=== PATIENT | female | born 1975 | race Caucasian/White ===

== ENCOUNTER 2018-07-13 15:12 | Emergency (ER) | payer BC, OTHER ==
[~2018-07-13] VITALS: Ht 167.6 cm; Wt 104.8 kg
--- OUTSIDE RECORDS SUMMARY | 2018-07-13 15:15 | XMS REPORT | Summary of Care ---
Author Author MANUELA HERRING N.P. Organization Unknown Address Unknown Phone Unavailable Care Team Providers Care Energy Crop Farmer Name Role Phone MANUELA HERRING N.P. Unavailable Unavailable Unavailable Unavailable Functional Status Name Dates Details Functional status health issues are not documented Status: Name Dates Details Cognitive status health issues are not documented Status: Problems Name Dates Details Lumbar disc disease (722.93, M51.9) Status: Active Lumbar stenosis (724.02, M48.061) Status: Active Polyarthralgia (719.49, M25.50) Status: Active Low back pain (724.2, M54.5) Status: Active Allergic rhinitis, seasonal (477.9, J30.2) Status: Active Dysthymia (300.4, F34.1) Status: Active Chronic bilateral low back pain without sciatica (724.2, M54.5) Status: Active Mixed hyperlipidemia (272.2, E78.2) Status: Active Medications Name Dates Details Atorvastatin Calcium 10 MG Oral Tablet TAKE 1 TABLET DAILY Quantity: 30 HERRING N.P., MANUELA Active Etodolac 400 MG Oral Tablet TAKE 1 TABLET TWICE DAILY. * Refills: 0 Active TiZANidine HCl - 4 MG Oral Capsule TAKE CAPSULE PRN * Refills: 0 Active Gabapentin 300 MG Oral Capsule TAKE 2 CAPSULES BY MOUTH THREE TIMES DAILY * Quantity: 540 Refills: 1 * Start : 21-Apr-2017 Active DULoxetine HCl - 20 MG Oral Capsule Delayed Release Particles TAKE 1 CAPSULE TWICE DAILY. * Quantity: 60 Refills: 5 HERRING N.P., MANUELA * Start : 12-Oct-2017 Active Allergies and Adverse Reactions Name Dates Details No Known Allergies (Allergy) Status: Active Past Medical History Name Dates Details History of High cholesterol (272.0, E78.00) Status: Resolved Procedures Procedure Dates Details History of Cholecystotomy Completed History of Section Completed Immunization Name Dates Details Immunizations not documented Family History Name Dates Details Family history of Hodgkin lymphoma of lymph nodes of neck (201.91, C81.91) Status: Active Name Dates Details Family history of pancreatic cancer (V16.0, Z80.0) Status: Active Name Dates Details Family history of Ovarian cancer (183.0, C56.9) Status: Active Name Dates Details Family history of malignant neoplasm of cervix (V16.49, Z80.49) Status: Active Social History Name Dates Details - Status: Name Dates Details Former smoker Vital Signs Date Test Result Details [id number] Physical Findings 11 Status: Comments: PHQ-9 Adult Depression Screening [id number] BP Systolic 132 mm[Hg] Status: Comments: Location: LUE; Position: Sitting BP Diastolic 83 mm[Hg] Status: Comments: Location: LUE; Position: Sitting Height 65 in Status: Weight 228.0625 lb Status: Body Mass Index Calculated 37.95 kg/m2 Status: Body Surface Area Calculated 2.09 m2 Status: Temperature 97.9 f Status: Comments: Method: Temporal Heart Rate 76 /min Status: Comments: Location: L Brachial Artery; Respiration Rate 16 /min Status: Comments: Quality: Normal Results Date Description Value Details Results not documented Plan of Care Name Dates Details Planned Observations Planned Goals not documented Interventions Provided Medication Changes* Atorvastatin Calcium 10 MG Oral Tablet - Renew * DULoxetine HCl - 20 MG Oral Capsule Delayed Release Particles - Renew Instructions* Patient Specific Education Given; Done: 14 Feb 2018 Plan* PHQ-9 score 11. * Patient would like to continue duloxetine at 40 mg. * Meds refilled. * Follow up in 6 months or sooner if needed. Instructions Name Dates Details Instructions not documented Encounters Appointment; ELIGIO MANZO P.A. Encounter Diagnosis: Problem not documented On: 31-Oct-2016 9:00 Appointment; KOLBY KUMAR M.D. Encounter Diagnosis: Problem not documented On: 21-Apr-2017 8:00 Appointment; MANUELA HERRING NP Encounter Diagnosis: Problem not documented On: 10-Jun-2017 17:45 Appointment; ROYAL LAWSON NP Encounter Diagnosis: Problem not documented On: 12-Oct-2017 8:30 Appointment; MANUELA HERRING NP Encounter Diagnosis: Problem not documented On: 16-Nov-2017 11:30 Appointment; MANUELA HERRING NP Encounter Diagnosis: Problem not documented On: 09-Feb-2018 13:00
--- OUTSIDE RECORDS SUMMARY | 2018-07-13 15:15 | XMS REPORT ---
Author Author Admin, [place] Organization [employer] Address Unknown Phone Unavailable Allergies, Adverse Reactions, Alerts Allergy Name Reaction Description Start Date Severity Status Provider No Known Allergies Anita Neville MA Conditions or Problems Problem Name Problem Code Onset Date Status Entry Date Provider Comment Standard Description Annotate Cervix, screening for malignant neoplasm V76.2 Active Nathen Neff MD Screening for malignant neoplasms of the cervix Car Manager annual exam V72.3 Active Nathen Neff MD Special investigations and examinations - Gynecological examination Hot flashes 627.2 Active Nathen Neff MD Symptomatic menopausal or female climacteric states Mammogram not high risk screening V76.12 Active Nathen Neff MD Other screening mammogram Medication List Medication Instructions Start Date Stop Date Generic Name NDC Status Provider Patient Instruction No Drug Therapy Prescribed - none known did ask Anita Neville MA Vital Signs Date Name Value Unit Range Description blood pressure, diastolic 85 mm[Hg] BP herbert blood pressure, systolic 122 mm[Hg] BP sys height E&M 5 [in_us] Bdy height pulse rate E&M 68 /min Heart rate respiratory rate E&M 17 /min Resp rate temperature E&M 98.3 [degF] Body temperature weight E&M 222.50 [lb_av] Weight Measured Diagnostic Results Date Name Value Unit Range Description Lab Report: FSH, Serum, TSH Rfx on Abnormal to Free T4 - Chemistry thyroid stimulating hormone, serum 1.680 u[iU]/mL 0.450-4.500 follicle stimulating hormone, serum 7.9 m[iU]/mL Procedures Code Procedure Name Date Entry Date Standard Description CPT-23005 New Patient Well Exam (40 - 64 Yrs) - 74751 16:12:43 CDT
[2018-07-13] MEDS ORDERED: ASPIRIN 81 MG CHEW TAB PO ONE (15:30)
[2018-07-13 16:08] LABS: BILIRUBIN,URINE 1+ (NEGATIVE); CLARITY,URINE CLEAR (CLEAR); COLOR,URINE YELLOW (YELLOW); KETONES,URINE NEGATIVE (NEGATIVE); LEUKOCYTE ESTERASE ,URINE TRACE (NEGATIVE); NITRITE,URINE NEGATIVE (NEGATIVE); PROTEIN,URINE DIPSTICK NEGATIVE (NEGATIVE); URINE UROBILINOGEN 0.2 mg/dL (0.2 - 1)
[2018-07-13 16:09] LABS: PREGNANCY TEST, URINE NEGATIVE (NEGATIVE)
[2018-07-13 16:19] LABS: EPITHELIAL CELLS,URINE FEW /LPF; WBC,URINE (MAN) 0-5 /HPF (0-5)
[2018-07-13 16:31] LABS: BASOPHILS % 0.3 % (0.0-1.0); EOSINOPHILS # (AUTO) 0.1 (0.0-0.4); EOSINOPHILS % 1.8 % (0.0-6.0); HEMATOCRIT 40.4 % (34.2-44.1); LYMPHOCYTES # (AUTO) 1.8 (1.0-3.2); LYMPHOCYTES % 26.3 % (18.0-39.1); MEAN CORPUSCULAR HEMOGLOBIN 29.5 pg (28-32); MEAN CORPUSCULAR HGB CONC 32.2 g/dL (31-35); MEAN CORPUSCULAR VOLUME 91.6 fL (81-99); MONOCYTES # (AUTO) 0.4 (0.2-0.8); MONOCYTES % 6.4 % (4.4-11.3); NEUTROPHILS # (AUTO) 4.5 (2.1-6.9); NEUTROPHILS % 65.1 % (38.7-80.0); PLATELET COUNT 442 x10e3/uL (140-360); RED BLOOD COUNT 4.41 x10e6/uL (3.6-5.1); RED CELL DISTRIBUTION WIDTH 12.6 % (11.7-14.4)
[2018-07-13 16:37] LABS: INR 0.91; PROTHROMBIN TIME 13.1 seconds (11.9-14.5)
[2018-07-13 16:38] LABS: PARTIAL THROMBOPLASTIN TIME 27.1 seconds (23.8-35.5)
[2018-07-13 16:45] LABS: ALANINE AMINOTRANSFERASE 16 IU/L (0-55); ALBUMIN 3.7 g/dL (3.5-5.0); ALBUMIN/GLOBULIN RATIO 0.8 (0.8-2.0); ALKALINE PHOSPHATASE 108 IU/L (40-150); ANION GAP 15.7 mmol/L (8-16); BLOOD UREA NITROGEN 9 mg/dL (7-26); BUN/CREATININE RATIO 10 (6-25); CALCIUM 9.7 mg/dL (8.4-10.2); CARBON DIOXIDE 24 mmol/L (22-29); CHLORIDE 107 mmol/L (98-107); CREATINE KINASE 129 IU/L (29-168); CREATININE, SERUM 0.94 mg/dL (0.57-1.11); EST GLOMERULAR FILTRATION RATE > 60 ML/MIN (60-); GLUCOSE 83 mg/dL (74-118); LIPASE 13 U/L (8-78); MAGNESIUM 2.1 MG/DL (1.3-2.1); POTASSIUM 3.7 mmol/L (3.5-5.1); SODIUM 143 mmol/L (136-145)
--- NOTE | 2018-07-13 17:04 | Diagnostic Imaging Report ---
Examination: Single AP view of the chest. COMPARISON: None. INDICATION: Dizziness, nausea, IMPRESSION: 1. Lines and Tubes: None 2. Lungs are grossly clear. No consolidation or effusion. 3. Cardiomediastinal silhouette is normal. Pulmonary vasculature is normal. 4. No acute bony abnormalities. Signed by: Dr. Yair Aragon M.D. on 07/13/2018 5:00 PM
[2018-07-13 17:05] LABS: THYROID STIMULATING HORMONE 2.185 uIU/mL (0.350-4.940)
--- NOTE | 2018-07-13 17:44 | Diagnostic Imaging Report ---
History: Dizziness Comparison studies: MRI brain 07/23/2010 Technique: Axial images were obtained from the skull base to the vertex. Coronal and sagittal reconstructions obtained from the axial data. Dose modulation, iterative reconstruction, and/or weight based adjustment of the mA/kV was utilized to reduce the radiation dose to as low as reasonably achievable. Findings: Scalp/skull: No abnormalities. No fractures, blastic or lytic lesions. Extra-axial spaces: No masses. No fluid collections. Brain sulci: Appropriate for age. Ventricles: Normal in size and configuration. No hydrocephalus. Parenchyma: No abnormal densities. No masses, hemorrhage, acute or chronic cortical vascular insults. Sellar/suprasellar region: No abnormalities Craniocervical junction: Patent foramen magnum. No Chiari one malformation. IMPRESSION: No abnormalities . Signed by: DR Jose L Gambino M.D. on 07/13/2018 5:40 PM
== END 2018-07-13 18:06 | disposition home or self-care (01) ==
LOC: ER 15:12
DX: R42 Dizziness and giddiness (principal); R11.0 Nausea; G89.29 Other chronic pain
CPT/HCPCS: 36415; 70450; 71045; 80053; 81001; 81025; 82550; 82553; 83690; 83735; 83880; 84443; 84484; 85025; 85610; 85730; 87086; 93005; 99284

== ENCOUNTER → 2019-12-30 | Day surgery (SDC) | payer BC ==
[~2019-12-30] MED LIST: ATORVASTATIN CA10 MG PO; B&O 60MG R/S 60 MG SUPP PR ONE; CEFTRIAXONE SOD 1 GM/NS 50 ML 50 ML IV ONE; CYMBALTA30 MG PO; DESFLURANE 240 ML BTL INH ONE; DEXAMETHASONE SOD PHOS INJ 4 MG/ML VIAL ONE; ETODOLAC400 M1 PO; GABAPENTIN300 MG PO; GENTAMICIN 80MG/NS 100 ML 200 ML IV ONE; IOPAMIDOL 300MG/ML 50ML INFUS..BTL IV ONE; LIDOCAINE HCL 2% LOCAL INJ 5 ML SDV VIAL INJ ONE; MEPERIDINE HCL INJ 25 MG/ML VIAL ONE; METOCLOPRAMIDE HCL 10 MG/2ML VIAL ONE; OLMESARTAN MEDOX5 MG PO; ONDANSETRON HCL INJ 2MG/ML 2ML 2 MG/ML VIAL ONE; PROPOFOL IV EMULSION 10 MG/ML 20 ML VIAL ONE; TIZANIDINE HCL4 MG PO; ULTRAM 50MG50 MG PO; VALIUM5 MG PO
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
--- OUTSIDE RECORDS SUMMARY | 2019-12-30 06:42 | XMS REPORT | Summary of Care ---
Author Author ELIGIO ROBLES Organization Unknown Address Unknown Phone Unavailable Care Team Providers Care Etl Lead Name Role Phone ELIGIO ROBLES Unavailable Unavailable LEDY P.A., YAMILE Unavailable Unavailable LEDY PA ND, YAMILE MCNEILL Unavailable Unavailable SEPIDEH PARKER ND, JOLENE Gomez Unavailable Unavailable BERNARD PARKER ND, DEE DEE CALDERON Unavailable Unavailable FERNANDA PARKER, GUIDO Ross Unavailable Unavailable Unavailable Unavailable Functional Status Name Dates Details Functional status health issues are not documented Status: Name Dates Details Cognitive status health issues are not documented Status: Problems Name Dates Details Lumbar disc disease (722.93, M51.9) Status: Active Lumbar stenosis (724.02, M48.061) Status: Active Polyarthralgia (719.49, M25.50) Status: Active Allergic rhinitis, seasonal (477.9, J30.2) Status: Active Chronic bilateral low back pain without sciatica (724.2, M54.5) Status: Active Vision disturbance (368.9, H53.9) Status: Active Dysthymia (300.4, F34.1) Status: Active Other form of dyspnea (786.09, R06.09) Status: Active Bilateral leg edema (782.3, R60.0) Status: Active Morbid obesity (278.01, E66.01) Status: Active Influenza vaccination declined (V64.06, Z28.21) Status: Active Benign essential hypertension (401.1, I10) Status: Active Mixed hyperlipidemia (272.2, E78.2) Status: Active BMI 40.0-44.9, adult (V85.41, Z68.41) Status: Active Anxiety (300.00, F41.9) Status: Active Dysuria (788.1, R30.0) Status: Active Migraine (346.90, G43.909) Status: Active Hematuria (599.70, R31.9) Status: Active Medications Name Dates Details Atorvastatin Calcium 10 MG Oral Tablet TAKE 1 TABLET BY MOUTH ONCE DAILY Quantity: 90 ANAIS Yoshi.[place]ALLAS MartinELIGIO * Start : 01-Sep-2018 Active Etodolac 400 MG Oral Tablet TAKE 1 TABLET TWICE DAILY. * Refills: 0 Active tiZANidine HCl - 4 MG Oral Capsule TAKE CAPSULE PRN * Refills: 0 Active DULoxetine HCl - 30 MG Oral Capsule Delayed Release Particles TAKE ONE CAPSULE BY MOUTH TWICE A DAY * Quantity: 180 Refills: 1 ANAIS Belle.ADALLAS MartinELIGIO * Start : 12-Oct-2017 Active Gabapentin 300 MG Oral Capsule TAKE 3 CAPSULE 3 TIMES DAILY * Refills: 0 Active traMADol HCl - 50 MG Oral Tablet PRN * Refills: 0 Active Amitriptyline HCl TABS TAKE 1 TABLET DAILY * Refills: 0 Active Olmesartan Medoxomil 5 MG Oral Tablet TAKE 1 TABLET DAILY * Quantity: 90 Refills: 1 ANAIS Belle.AVeronica ELIGIO * Start : 19-Jan-2019 Active Eletriptan Hydrobromide 20 MG Oral Tablet TAKE 1 TABLET AT ONSET OF MIGRAINE. MAY REPEAT ONCE AFTER 2 HOURS. MAX 2 DOSES/2 4 HOURS. * Quantity: 30 Refills: 1 YAMILE VELAZQUEZ * Start : 19-Jan-2019 Active diazePAM 5 MG Oral Tablet TAKE 1 TABLET TWICE DAILY. * Quantity: 60 Refills: 1 ELIGIO ROBLES * Start : 19-Dec-2019 Active Allergies and Adverse Reactions Name Dates Details No Known Allergies (Allergy) Status: Active Past Medical History Name Dates Details History of High cholesterol (272.0, E78.00) Status: Resolved Procedures Procedure Dates Details [[facility]] CULTURE, URINE, ROUTINE Date: 19-Dec-2019 Bladder 26162 Date: 19-Dec-2019 Renal 26194 Date: 19-Dec-2019 History of Cholecystotomy Completed History of Section [...] Dates Details - Status: Name Dates Details Ex-smoker (finding) Vital Signs Date Test Result Details :20 Physical Findings 21 Status: Comments: PHQ-9 Adult Depression Screening :38 Systolic blood pressure 135 mm[Hg] Status: Comments: Location: E; Position: Sitting Diastolic blood pressure 85 mm[Hg] Status: Comments: Location: LUE; Position: Sitting Body height 65 in Status: Weight 261.5625 lb Status: Body mass index (BMI) [Ratio] 43.53 kg/m2 Status: Body surface area Derived from formula 2.22 m2 Status: Body temperature 96.5 f Status: Comments: Method: Temporal Heart Rate 116 /min Status: Respiratory rate 16 /min Status: :37 Physical Findings 0 Status: Comments: Alcohol Screen - How many times in the past yr have you had 5 (for M) or 4 (for F) or 4 (for all > 65yrs) or more drinks in a day? Results Date Description Value Details :47 [O] Urine Dipstick (In Office) Glucose normal (Normal) LEUKOCYTES ++ NITRITE + UROBILINOGEN neg (Normal) PROTEIN trace pH 5 URINE BLOOD about 250 SPECIFIC GRAVITY 1.010 KETONES neg (Normal) BILIRUBIN neg (Normal) COLOR URINE yellow (Normal) APPEARANCE clear (Normal) Plan of Care Name Dates Details Planned Observations Planned Goals not documented Interventions Provided Medication Changes* Atorvastatin Calcium 10 MG Oral Tablet - Renew * diazePAM 5 MG Oral Tablet - Start * DULoxetine HCl - 30 MG Oral Capsule Delayed Release Particles - Renew * Olmesartan Medoxomil 5 MG Oral Tablet - Renew Labs/Procedures/Imaging* [[facility]] CULTURE, URINE, ROUTINE; To Be Done: 19 Dec 2019 * US Bladder 24345; To Be Done: 19 Dec 2019 * [place] Renal 72956; To Be Done: 19 Dec 2019 * [O] Urine Dipstick (In Office); Done: 19 Dec 2019 * Tobacco Use Screening; Done: 19 Dec 2019 * Tobacco Use Screening; Done: 19 Dec 2019 Plan* trial valium 5 mg po bid x 2 weeks, then prn thereafter. f/u in 2 months if no improvement. * Denies any SI/ HI. * Phq9: 21 restart duloxetone. trial of valium * Await urine culture. Instructions Name Dates Details Instructions not documented Encounters Appointment; HERRING, MANUELA, REQUIREMENTS ANALYST Encounter Diagnosis: Problem not documented On: 09-Feb-2018 13:00 Appointment; YAMILE VILLAFANA P.A. Encounter Diagnosis: Problem not documented On: 13-Jul-2018 14:00 Appointment; YAMILE VILLAFANA P.A. Encounter Diagnosis: Problem not documented On: 06-Sep-2018 14:00 Appointment; JOLENE BUNN M.D. Encounter Diagnosis: Problem not documented On: 24-Sep-2018 14:15 Appointment; MANUELA HERRING APRN Encounter Diagnosis: Problem not documented On: 19-Jan-2019 13:00 Appointment; YAMILE VILLAFANA P.A. Encounter Diagnosis: Problem not documented On: 02-Mar-2019 7:30 Appointment; YAMILE VILLAFANA P.A. Encounter Diagnosis: Problem not documented On: 09-Mar-2019 7:30 Appointment; YAMILE VILLAFANA P.A. Encounter Diagnosis: Problem not documented On: 10-Aug-2019 7:30 Appointment; YAMILE VILLAFANA P.A. Encounter Diagnosis: Problem not documented On: 05-Oct-2019 8:00 Appointment; ELIGIO MANZO P.A. Encounter Diagnosis: Problem not documented On: 19-Dec-2019 10:45
--- OUTSIDE RECORDS SUMMARY | 2019-12-30 06:42 | XMS REPORT | Summary of Care ---
Author Author ELIGIO ROBLES Organization Unknown Address Unknown Phone Unavailable Care Team Providers Care Vascular Nurse Name Role Phone ELIGIO ROBLES Unavailable Unavailable LEDY P.A., YAMILE Unavailable Unavailable LEDY PA ME, YAMILE MCNEILL Unavailable Unavailable SEPIDEH PARKER ME, JOLENE Gomez Unavailable Unavailable BERNARD PARKER ME, DEE DEE CALDERON Unavailable Unavailable FERNANDA PARKER, [...] DAILY * Quantity: 90 Refills: 1 ANAIS Belle.DALL[place] AminICIA * Start : 19-Jan-2019 Active Eletriptan Hydrobromide [...] E78.00) Status: Resolved Procedures Procedure Dates Details Bladder 54216 Date: 19-Dec-2019 [place] Renal 32136 Date: 19-Dec-2019 History of Cholecystotomy Completed History [...] blood pressure 135 mm[Hg] Status: Comments: Location: LUE; Position: Sitting Diastolic blood pressure 85 mm[Hg] [...] a day? Results Date Description Value Details Results not documented Plan of Care Name Dates Details Planned Observations Planned Goals not documented Interventions Provided Medication Changes* Atorvastatin Calcium 10 MG Oral Tablet - Renew * diazePAM 5 MG Oral Tablet - Start * DULoxetine HCl - 30 MG Oral Capsule Delayed Release Particles - Renew * Olmesartan Medoxomil 5 MG Oral Tablet - Renew Labs/Procedures/Imaging* US Bladder 69972; To Be Done: 19 Dec 2019 * US Renal 27824; To Be Done: 19 Dec 2019 * Tobacco Use [...] Dates Details Instructions not documented Encounters Appointment; MANUELA HERRING APRN Encounter Diagnosis: Problem not documented On: 09-Feb-2018 [...]
--- OUTSIDE RECORDS SUMMARY | 2019-12-30 06:42 | XMS REPORT | Summary of Care ---
Author Nicho Ness [facility] Unknown Address Unknown Phone Unavailable Care Team Providers Care Construction Foreman Name Role Phone YAMILE VELAZQUEZ Unavailable Unavailable LEDY ORTIZ [place], YAMILE MCNEILL Unavailable Unavailable SEPIDEH PARKER [place], JOLENE Gomez Unavailable Unavailable BERNARD PARKER [place], DEE DEE CALDERON Unavailable Unavailable FERNANDA PARKER, [...] Active Vision disturbance (368.9, H53.9) Status: Active Benign essential hypertension (401.1, I10) Status: Active Dysthymia (300.4, F34.1) Status: Active Anxiety (300.00, F41.9) Status: Active Other form of dyspnea (786.09, R06.09) Status: Active Migraine (346.90, G43.909) Status: Active Mixed hyperlipidemia (272.2, E78.2) Status: Active Bilateral leg edema (782.3, R60.0) Status: Active Morbid obesity (278.01, E66.01) Status: Active Hematuria (599.70, R31.9) Status: Active Influenza vaccination declined (V64.06, Z28.21) Status: Active Medications Name Dates Details Atorvastatin Calcium 10 MG Oral Tablet TAKE 1 TABLET BY MOUTH ONCE DAILY Quantity: 90 YAMILE VELAZQUEZ * Start : 01-Sep-2018 Active Etodolac 400 MG Oral Tablet TAKE 1 TABLET TWICE DAILY. * Refills: 0 M.A. Active tiZANidine HCl - 4 MG Oral Capsule TAKE CAPSULE PRN * Refills: 0 M.A. Active DULoxetine HCl - 30 MG Oral Capsule Delayed Release Particles TAKE ONE CAPSULE BY MOUTH TWICE A DAY.. needs office visit * Quantity: 60 Refills: 2 YAMILE VELAZQUEZ * Start : 12-Oct-2017 Active Gabapentin 300 MG Oral Capsule TAKE 3 CAPSULE 3 TIMES DAILY * Refills: 0 M.A. Active traMADol HCl - 50 MG Oral Tablet PRN * Refills: 0 M.A. Active Amitriptyline HCl TABS TAKE 1 TABLET DAILY * Refills: 0 M.A. Active Ondansetron HCl - 4 MG Oral Tablet TAKE 1 TABLET EVERY 8 HOURS PRN nausea or vomiting * Quantity: 30 Refills: 0 YAMILE VELAZQUEZ * Start : 19-Jan-2019 Active Olmesartan Medoxomil 5 MG Oral Tablet TAKE 1 TABLET DAILY * Quantity: 90 Refills: 1 YAMILE VELAZQUEZ * Start : 19-Jan-2019 Active Eletriptan Hydrobromide 20 MG Oral Tablet TAKE 1 TABLET AT ONSET OF MIGRAINE. MAY REPEAT ONCE AFTER 2 HOURS. MAX 2 DOSES/2 4 HOURS. * Quantity: 30 Refills: 1 YAMILE VELAZQUEZ * Start : 19-Jan-2019 Active hydrOXYzine HCl - 25 MG Oral Tablet 1-2 PO TID PRN anxiety. May cause drowsiness * Quantity: 60 Refills: 2 YAMILE VELAZQUEZ * Start : 10-Aug-2019 Active Allergies and Adverse Reactions Name Dates Details No Known Allergies (Allergy) Status: Active Past Medical History Name Dates Details History of High cholesterol (272.0, E78.00) Status: Resolved Procedures Procedure Dates Details XRAY Chest 2 views [id number] Date: 10-Aug-2019 History of Cholecystotomy Completed History of Section [...] smoker Vital Signs Date Test Result Details :30 Physical Findings 16 Status: Comments: PHQ-9 Adult Depression Screening Physical Findings 0 Status: Comments: Alcohol Screen - How many times in the past yr have you had 5 (for M) or 4 (for F) or 4 (for all > 65yrs) or more drinks in a day? :45 BP Systolic 138 mm[Hg] Status: Comments: Location: LUE; Position: Sitting BP Diastolic 84 mm[Hg] Status: Comments: Location: LUE; Position: Sitting Height 65 in Status: Weight 259 lb Status: Body Mass Index Calculated 43.1 kg/m2 Status: Body Surface Area Calculated 2.21 m2 Status: Temperature 97.5 f Status: Comments: Method: Temporal Heart Rate 82 /min Status: Respiration Rate 16 /min Status: Results Date Description Value Details :48 [QL] LIPID PANEL CHOLESTEROL, TOTAL 184 mg/dl (Normal) Range: <200 HDL CHOLESTEROL 56 mg/dl (Normal) Range: >50 TRIGLYCERIDES 126 mg/dl (Normal) Range: <150 LDL-CHOLESTEROL 105 {MG/DL__CAL} (Above high threshold) Comments: Reference range: <100 Desirable range <100 mg/dL for primary prevention; <70 mg/dL for patients with CHD or diabetic patients with > or=2 CHD risk factors. LDL-C is now calculated using the Irma calculation, which is a validated novel method providing better accuracy than the Friedewald equation in the estimation of LDL-C. Jamal SS et al. JUSTIN. 2013;310(19): 3278-0527 (http:/ /education.[employer].com/faq/VLZ537) CHOL/HDLC RATIO 3.3 {CALC} (Normal) Range: <5.0 NON HDL CHOLESTEROL 128 {MG/DL__CAL} (Normal) Range: <130 Comments: For patients with diabetes plus 1 major ASCVD risk factor, treating to a non-HDL-C goal of <100 mg/dL (LDL-C of <70 mg/dL) is considered a therapeutic option. :48 [QLH] CMP W/EGFR GLUCOSE 98 mg/dl (Normal) Range: 65-99 Comments: Fasting reference interval UREA NITROGEN (BUN) 12 mg/dl (Normal) Range: 7-25 CREATININE 0.80 mg/dl (Normal) Range: 0.50-1.10 eGFR NON- 91 {ML/MIN/1.7} (Normal) Range: > OR=60 eGFR 105 {ML/MIN/1.7} (Normal) Range: > OR=60 BUN/CREATININE RATIO NOT APPLICABLE {CALC} Range: 6-22 SODIUM 140 mmol/L (Normal) Range: 135-146 POTASSIUM 4.5 mmol/L (Normal) Range: 3.5-5.3 CHLORIDE 105 mmol/L (Normal) Range: 98-110 CARBON DIOXIDE 28 mmol/L (Normal) Range: 20-32 CALCIUM 9.1 mg/dl (Normal) Range: 8.6-10.2 PROTEIN, TOTAL 7.0 g/dl (Normal) Range: 6.1-8.1 ALBUMIN 3.7 g/dl (Normal) Range: 3.6-5.1 GLOBULIN 3.3 {G/DL__CALC} (Normal) Range: 1.9-3.7 ALBUMIN/GLOBULIN RATIO 1.1 {CALC} (Normal) Range: 1.0-2.5 BILIRUBIN, TOTAL 0.9 mg/dl (Normal) Range: 0.2-1.2 ALKALINE PHSPHATASE 92 u/l (Normal) Range: 33-115 AST 11 u/l (Normal) Range: 10-30 ALT 13 u/l (Normal) Range: 6-29 29-Onx-12992:48 [[facility]] URINALYSIS, COMPLETE W/REFLEX TO CULTURE COLOR YELLOW (Normal) Range: YELLOW APPEARANCE CLEAR (Normal) Range: CLEAR SPECIFIC GRAVITY 1.023 (Normal) Range: 1.001-1.035 PH 6.5 (Normal) Range: 5.0-8.0 GLUCOSE NEGATIVE (Normal) Range: NEGATIVE BILIRUBIN NEGATIVE (Normal) Range: NEGATIVE KETONES NEGATIVE (Normal) Range: NEGATIVE OCCULT BLOOD 3+ (Abnormal) Range: NEGATIVE PROTEIN 1+ (Abnormal) Range: NEGATIVE NITRITE NEGATIVE (Normal) Range: NEGATIVE LEUKOCYTE ESTERASE 1+ (Abnormal) Range: NEGATIVE WBC 10-20 {/HPF} (Abnormal) Range: < OR=5 RBC 40-60 {/HPF} (Abnormal) Range: < OR=2 SQUAMOUS EPITHELIAL CELLS 0-5 {/HPF} Range: < OR=5 BACTERIA NONE SEEN {/HPF} (Normal) Range: NONE SEEN HYALINE CAST 0-5 {/LPF} (Abnormal) Range: NONE SEEN :48 [Q] REFLEXIVE URINE CULTURE REFLEXIVE URINE CULTURE CULTURE INDICATED - RESULTS TO FOLLOW :48 [QL] CBC (INCLUDES DIFF/PLT) WHITE BLOOD CELL COUNT 5.7 {Thousand/u} (Normal) Range: 3.8-10.8 RED BLOOD CELL COUNT 3.94 {Million/uL} (Normal) Range: 3.80-5.10 HEMAGLOBIN 11.7 g/dl (Normal) Range: 11.7-15.5 HEMATOCRIT 34.7 % (Below low threshold) Range: 35.0-45.0 MCV 88.1 fL (Normal) Range: 80.0-100.0 MCH 29.7 pg (Normal) Range: 27.0-33.0 MCHC 33.7 g/dl (Normal) Range: 32.0-36.0 RDW 12.5 % (Normal) Range: 11.0-15.0 PLATELET COUNT 391 {Thousand/u} (Normal) Range: 140-400 MPV 9.1 fL (Normal) Range: 7.5-12.5 ABSOLUTE NEUTROPHILS 3283 {cells/uL} (Normal) Range: 7207-2018 ABSOLUTE LYMPHOCYTES 1773 {cells/uL} (Normal) Range: 850-3900 ABSOLUTE MONOCYTES 456 {cells/uL} (Normal) Range: 200-950 ABSOLUTE EOSINOPHILS 148 {cells/uL} (Normal) Range: 15-500 ABSOLUTE BASOPHILS 40 {cells/uL} (Normal) Range: 0-200 NEUTROPHILS 57.6 % (Normal) LYMPHOCYTES 31.1 % (Normal) MONOCYTES 8.0 % (Normal) EOSINOPHILS 2.6 % (Normal) BASOPHILS 0.7 % (Normal) :48 [QL] TSH, 3RD GENERATION W/REFLEX TO FT4 TSH, 3RD GENERATION W/REFLEX TO FT4 2.24 {MIU/L} (Normal) Comments: Reference Range > or=20 Years 0.40-4.50 Ranges First trimester 0.26-2.66 Second trimester 0.55-2.73 Third trimester 0.43-2.91 :48 [QL] CULTURE, URINE, ROUTINE Comments: REPORT COMMENT:FASTING:YES CULTURE Comments: CULTURE, URINE, ROUTINE MICRO NUMBER: [id number] TEST STATUS: FINAL SPECIMEN SOURCE: URINE SPECIMEN QUALITY: ADEQUATE Result: Multiple organisms present, each less than 10,000 CFU/mL. These organisms, commonly found on external and internal genitalia, are considered to be colonizers. No further testing performed. [id number] [[facility]] URINALYSIS, COMPLETE W/REFLEX TO CULTURE COLOR YELLOW (Normal) Range: YELLOW APPEARANCE CLEAR (Normal) Range: CLEAR SPECIFIC GRAVITY 1.013 (Normal) Range: 1.001-1.035 PH 5.5 (Normal) Range: 5.0-8.0 GLUCOSE NEGATIVE (Normal) Range: NEGATIVE BILIRUBIN NEGATIVE (Normal) Range: NEGATIVE KETONES NEGATIVE (Normal) Range: NEGATIVE OCCULT BLOOD NEGATIVE (Normal) Range: NEGATIVE PROTEIN TRACE (Abnormal) Range: NEGATIVE NITRITE NEGATIVE (Normal) Range: NEGATIVE LEUKOCYTE ESTERASE 1+ (Abnormal) Range: NEGATIVE WBC 10-20 {/HPF} (Abnormal) Range: < OR=5 RBC 0-2 {/HPF} (Normal) Range: < OR=2 SQUAMOUS EPITHELIAL CELLS NONE SEEN {/HPF} (Normal) Range: < OR=5 BACTERIA NONE SEEN {/HPF} (Normal) Range: NONE SEEN HYALINE CAST NONE SEEN {/LPF} (Normal) Range: NONE SEEN [id number] [] REFLEXIVE URINE CULTURE REFLEXIVE URINE CULTURE CULTURE INDICATED - RESULTS TO FOLLOW [id number] [[facility]] CULTURE, URINE, ROUTINE Comments: REPORT COMMENT:FASTING:NO CULTURE Comments: CULTURE, URINE, ROUTINE Micro Number: [id number] Test Status: Final Specimen Source: URINE Specimen Quality: Adequate Result: Multiple organisms present, each less than 10,000 CFU/mL. These organisms, commonly found on external and internal genitalia, are considered to be colonizers. No further testing performed. Plan of Care Name Dates Details Planned Observations Planned Goals not documented Planned Encounters Appointment; YAMILE VILLAFANA P.A. On: 05-Oct-2019 8:00 Instructions Name Dates Details Instructions not documented Encounters Appointment; ROYAL LAWSON NP Encounter Diagnosis: Problem [...] documented On: 24-Sep-2018 14:15 Appointment; MANUELA HERRING NP Encounter Diagnosis: Problem not documented On: 19-Jan-2019 13:00 Appointment; YAMILE VILLAFANA P.A. Encounter Diagnosis: Problem not documented On: 02-Mar-2019 7:30 Appointment; YAMILE VILLAFANA P.A. Encounter Diagnosis: Problem not documented On: 09-Mar-2019 7:30 Appointment; YAMILE VILLAFANA P.A. Encounter Diagnosis: Problem not documented On: 10-Aug-2019 7:30
--- OUTSIDE RECORDS SUMMARY | 2019-12-30 06:42 | XMS REPORT ---
Author Author Admin, [place] Organization [facility] Address [address] [address] Phone Allergies, Adverse Reactions, Alerts Allergy Name Reaction Description Start Date Severity Status Provider No Known Allergies Anita Neville MA Conditions or Problems Problem Name Problem Code Onset Date Status Entry Date Provider Comment Standard Description Annotate Cervix, screening for malignant neoplasm V76.2 Active Nathen Neff MD Screening for malignant neoplasms of the cervix Pipe Recovery Specialist annual exam V72.3 Active Nathen Neff MD [...] Procedure Name Date Entry Date Standard Description CPT-98431 New Patient Well Exam (40 - 64 Yrs) - 29636 16:12:43 CDT
--- OUTSIDE RECORDS SUMMARY | 2019-12-30 06:42 | XMS REPORT | Summary of Care ---
Author Author ELIGIO ROBLES Organization Unknown Address Unknown Phone Unavailable Care Team Providers Care Director Of Knowledge Management Name Role Phone ELIGIO ROBLES Unavailable Unavailable LEDY P.A., YAMILE Unavailable Unavailable LEDY PA [place], YAMILE MCNEILL Unavailable Unavailable SEPIDEH PARKER [place], JOLENE Gomez Unavailable Unavailable BERNARD PARKER [place], DEE DEE CALDERON Unavailable Unavailable FERNANDA PARKER, [...] Influenza vaccination declined (V64.06, Z28.21) Status: Active BMI 40.0-44.9, adult (V85.41, Z68.41) Status: Active Anxiety (300.00, F41.9) Status: Active Medications Name Dates Details Atorvastatin Calcium 10 MG Oral Tablet TAKE 1 TABLET BY MOUTH ONCE DAILY Quantity: 90 ANAIS Mora, ELIGIO * Start : 01-Sep-2018 Active Etodolac 400 MG Oral Tablet TAKE 1 TABLET TWICE DAILY. * Refills: 0 Active tiZANidine HCl - 4 MG Oral Capsule TAKE CAPSULE PRN * Refills: 0 Active DULoxetine HCl - 30 MG Oral Capsule Delayed Release Particles TAKE ONE CAPSULE BY MOUTH TWICE A DAY * Quantity: 180 Refills: 1 ELIGIO ROBLES * Start : 12-Oct-2017 Active Gabapentin 300 MG Oral Capsule TAKE 3 CAPSULE 3 TIMES DAILY * Refills: 0 Active traMADol HCl - 50 MG Oral Tablet PRN * Refills: 0 Active Amitriptyline HCl TABS TAKE 1 TABLET DAILY * Refills: 0 Active Olmesartan Medoxomil 5 MG Oral Tablet TAKE 1 TABLET DAILY * Quantity: 90 Refills: 1 ANAIS Belle.ELIGIO Amin * Start : 19-Jan-2019 Active Eletriptan Hydrobromide 20 MG Oral Tablet TAKE 1 TABLET AT ONSET OF MIGRAINE. MAY REPEAT ONCE AFTER 2 HOURS. MAX 2 DOSES/2 4 HOURS. * Quantity: 30 Refills: 1 YAMILE VELAZQUEZ * Start : 19-Jan-2019 Active diazePAM 5 MG Oral Tablet TAKE 1 TABLET TWICE DAILY. * Quantity: 60 Refills: 1 DALLAS ROBLESICIA * Start : 19-Dec-2019 Active Allergies and [...] (finding) Vital Signs Date Test Result Details [id number] Systolic blood pressure 135 mm[Hg] Status: Comments: [...] /min Status: Respiratory rate 16 /min Status: 70-Fbk-[id number]:37 Physical Findings 0 Status: Comments: Alcohol Screen [...] 5 MG Oral Tablet - Renew Labs/Procedures/Imaging* Tobacco Use Screening; Done: 19 Dec 2019 Plan* trial valium * deeniws any Si/hi * phq9: 21 restrat duloxetone * dysuria Instructions Name Dates Details Instructions not documented [...]
--- OUTSIDE RECORDS SUMMARY | 2019-12-30 06:42 | XMS REPORT | Summary of Care ---
Author Author Emilie Hernandez M.A. Organization Unknown Address [facility] Phone Unavailable Care Team Providers Care Sash Installer Name Role Phone ELIGIO ROBLES Unavailable Unavailable Emilie Hernandez M.A. Unavailable Unavailable LEDYYAMILE PHELAN Unavailable Unavailable LEDY ANGEL [place], YAMILE MCNEILL Unavailable Unavailable SEPIDEH PARKER [place], JOLENE Gomez Unavailable Unavailable BERNARD PARKER [place], DEE DEE CALDERON Unavailable Unavailable FERNANDA PARKER, [...] Status: Active Dysuria (788.1, R30.0) Status: Active Medications Name Dates Details Atorvastatin Calcium 10 MG Oral Tablet TAKE 1 TABLET BY MOUTH ONCE DAILY Quantity: 90 ANAIS Belle.DALLAS AminICIA * Start : 01-Sep-2018 Active Etodolac 400 MG Oral Tablet TAKE 1 TABLET TWICE DAILY. * Refills: 0 Active tiZANidine HCl - 4 MG Oral Capsule TAKE CAPSULE PRN * Refills: 0 Active DULoxetine HCl - 30 MG Oral Capsule Delayed Release Particles TAKE ONE CAPSULE BY MOUTH TWICE A DAY * Quantity: 180 Refills: 1 ANAIS Belle.D[place] AminICIA * Start : 12-Oct-2017 Active Gabapentin 300 MG Oral Capsule TAKE 3 CAPSULE 3 TIMES DAILY * Refills: 0 Active traMADol HCl - 50 MG Oral Tablet PRN * Refills: 0 Active Amitriptyline HCl TABS TAKE 1 TABLET DAILY * Refills: 0 Active Olmesartan Medoxomil 5 MG Oral Tablet TAKE 1 TABLET DAILY * Quantity: 90 Refills: 1 ANAIS Belle.AD[place] MartinELIGIO * Start : 19-Jan-2019 Active Eletriptan Hydrobromide [...] (finding) Vital Signs Date Test Result Details [id number] Physical Findings 21 Status: Comments: PHQ-9 Adult Depression Screening [id number] Systolic blood pressure 135 mm[Hg] Status: Comments: [...] /min Status: Respiratory rate 16 /min Status: 30-Hby-753132:37 Physical Findings 0 Status: Comments: Alcohol Screen - How many times in the past yr have you had 5 (for M) or 4 (for F) or 4 (for all > 65yrs) or more drinks in a day? Results Date Description Value Details Results not documented Plan of Care Name Dates Details Planned Observations Planned Goals not documented Instructions Name Dates Details Instructions not documented [...]
--- OUTSIDE RECORDS SUMMARY | 2019-12-30 06:42 | XMS REPORT | Summary of Care ---
Author Author ELIGIO ROBLES Organization Unknown Address Unknown Phone Unavailable Care Team Providers Care Fur Operator Name Role Phone ELIGIO ROBLES Unavailable Unavailable LEDY P.A., YAMILE Unavailable Unavailable LEDY PA PA, YAMILE MCNEILL Unavailable Unavailable SEPIDEH PARKER PA, JOLENE Gomez Unavailable Unavailable BERNARD PARKER PA, DEE DEE CALDERON Unavailable Unavailable FERNANDA PARKER, [...] BY MOUTH ONCE DAILY Quantity: 90 ANAIS Yoshi.A., ELIGIO * Start : 01-Sep-2018 Active Etodolac 400 MG Oral Tablet TAKE 1 TABLET TWICE DAILY. * Refills: 0 M.A. Active tiZANidine HCl - 4 MG Oral Capsule TAKE CAPSULE PRN * Refills: 0 M.A. Active DULoxetine HCl - 30 MG Oral Capsule Delayed Release Particles TAKE ONE CAPSULE BY MOUTH TWICE A DAY * Quantity: 180 Refills: 1 ANAIS P.A. ELIGIO * Start : 12-Oct-2017 Active Gabapentin 300 MG Oral Capsule TAKE 3 CAPSULE 3 TIMES DAILY * Refills: 0 M.A. Active traMADol HCl - 50 MG Oral Tablet PRN * Refills: 0 M.A. Active Amitriptyline HCl TABS TAKE 1 TABLET DAILY * Refills: 0 M.A. Active Eletriptan Hydrobromide 20 MG Oral Tablet TAKE 1 TABLET AT ONSET OF MIGRAINE. MAY REPEAT ONCE AFTER 2 HOURS. MAX 2 DOSES/2 4 HOURS. * Quantity: 30 Refills: 1 YAMILE VELAZQUEZ * Start : 19-Jan-2019 Active diazePAM 5 MG Oral Tablet TAKE 1 TABLET TWICE DAILY. * Quantity: 60 Refills: 1 DALLAS ROBLESICIA * Start : 19-Dec-2019 Active Olmesartan Medoxomil 5 MG Oral Tablet TAKE 1 TABLET DAILY * Quantity: 90 Refills: 1 NAAIS Belle.A.DALLASELIGIO * Start : 19-Jan-2019 Active Allergies and Adverse Reactions Name Dates Details No Known Allergies (Allergy) Status: Active Past Medical History Name Dates Details History of High cholesterol (272.0, E78.00) Status: Resolved Procedures Procedure Dates Details [[facility]] CULTURE, URINE, ROUTINE Date: 19-Dec-2019 Bladder [id number] Date: 19-Dec-2019 Renal 40318 Date: 19-Dec-2019 History of Cholecystotomy Completed History [...] COLOR URINE yellow (Normal) APPEARANCE clear (Normal) [id number] US Retroperitoneal Complete [id number] Retroperitoneal Complete US SEE NOTES Comments: EXAM: Retroperitoneal Complete USDATE: 12/20/2019 14:38 CDT.INDICATION: - R31.9 Hematuria, unspecified.COMPARISON: None available.TECHNIQUE: Multiplanar grayscale and color Doppler ultrasound of the kidneysand urinary bladder.FINDINGS:RIGHT KIDNEY* Hydronephrosis: None.* Size: 11.1 cm. Cortical thickness=1.4 cm.* Echogenicity: Normal.* Calculi: Echogenic calculi are noted including a 1.1 cm interpolarcalcification, 1.2 x 1.0 cm lower pole calcification and a 7 mm lower polecalcification* Cysts: None.* Masses: None.LEFT KIDNEY* Hydronephrosis: None.* Size: 10.8 cm. Cortical thickness=1.6 cm.* Echogenicity: Normal.* Calculi: Lower pole calcification measures up to 1.0 cm* Cysts: None.* Masses: None.Bladder: Normal. Bilateral ureteral jets are identified. Estimated volume vpe593 mL. Small postvoid residual estimated at 25 mL.Visualized portions of the IVC and aorta were within normal limits. Theproximal aorta measures up to 1.8 cm.IMPRESSION:Bilateral nonobstructing renal calculi. No hydronephrosis.--Read by: Michael Rodriguezictated Date/time: 12/20/19 15:43Electronically Signed by: Michael Rodriguez MD 12/19/2014:45FINAL REPORT Plan of Care Name Dates Details Planned Observations Planned Goals not documented Interventions Provided Discussion/Summary* nohting acute detected on u/s bilateral kidney stones, right > left, non-obstrucitng but if they do decide to move will cause problems. bladder looks normal no obstructionin kidney. recommend referral to urogynecology or urology for hematuria. Instructions Name Dates Details Instructions not documented [...]
--- OUTSIDE RECORDS SUMMARY | 2019-12-30 06:42 | XMS REPORT | Summary of Care ---
Author Author YAMILE VELAZQUEZ Organization Unknown Address Unknown Phone Unavailable Care Team Providers Care Personal Banking Assistant Name Role Phone YAMILE VELAZQUEZ Unavailable Unavailable LEDY ORTIZ TNYAMILE Unavailable Unavailable SEPIDEH PARKER [place], JOLENE Gomez Unavailable Unavailable BERNARD PARKER [place], DEE DEE CALDERON Unavailable Unavailable FERNANDA PARKER, [...] TWICE A DAY * Quantity: 180 Refills: 0 YAMILE VELAZQUEZ * Start : 12-Oct-2017 Active Gabapentin 300 MG Oral Capsule TAKE 3 CAPSULE 3 TIMES DAILY * Refills: 0 Active traMADol HCl - 50 MG Oral Tablet PRN * Refills: 0 Active Amitriptyline HCl TABS TAKE 1 TABLET DAILY * Refills: 0 Active Ondansetron HCl - 4 MG Oral [...] (finding) Vital Signs Date Test Result Details No Known Vitals to report Results Date Description Value Details Results not documented Plan of Care Name Dates Details Planned Observations Planned Goals not documented Planned Encounters Appointment; YAMILE VILLAFANA P.A. On: 21-Dec-2019 8:30 Interventions Provided Medication Changes* DULoxetine HCl - 30 MG Oral Capsule Delayed Release Particles - Renew Instructions Name Dates Details Instructions not documented [...]
--- OUTSIDE RECORDS SUMMARY | 2019-12-30 06:42 | XMS REPORT | Summary of Care ---
Author Author ELIGIO ROBLES Organization Unknown Address Unknown Phone Unavailable Care Team Providers Care Billing Clerk Name Role Phone ELIGIO ROBLES Unavailable Unavailable LEDY P.A., YAMILE Unavailable Unavailable LEDY PA [place], YAMILE MCNEILL Unavailable Unavailable SEPIDEH PARKER [place], JOLENE Gomez Unavailable Unavailable BERNARD PARKER [place], DEE DEE CALDERON Unavailable Unavailable FERNANDA PARKER, [...] Influenza vaccination declined (V64.06, Z28.21) Status: Active Mixed hyperlipidemia (272.2, E78.2) Status: Active Migraine (346.90, G43.909) Status: Active Benign essential hypertension (401.1, I10) Status: Active Hematuria (599.70, R31.9) Status: Active Anxiety (300.00, F41.9) Status: Active BMI 40.0-44.9, adult (V85.41, Z68.41) Status: Active Dysuria (788.1, R30.0) Status: Active Medications Name Dates Details Atorvastatin Calcium 10 MG Oral Tablet TAKE 1 TABLET BY MOUTH ONCE DAILY Quantity: 90 ANAIS P.A., ELIGIO * Start : 01-Sep-2018 Active Etodolac 400 MG Oral Tablet TAKE 1 TABLET TWICE DAILY. * Refills: 0 M.A. Active tiZANidine HCl - 4 MG Oral Capsule TAKE CAPSULE PRN * Refills: 0 M.A. Active DULoxetine HCl - 30 MG Oral Capsule Delayed Release Particles TAKE ONE CAPSULE BY MOUTH TWICE A DAY * Quantity: 180 Refills: 1 ANAIS P.A., ELIGIO * Start : 12-Oct-2017 Active Gabapentin 300 MG Oral Capsule TAKE 3 CAPSULE 3 TIMES DAILY * Refills: 0 M.A. Active traMADol HCl - 50 MG Oral Tablet PRN * Refills: 0 M.A. Active Amitriptyline HCl TABS TAKE 1 TABLET DAILY * Refills: 0 M.A. Active Olmesartan Medoxomil 5 MG Oral Tablet TAKE 1 TABLET DAILY * Quantity: 90 Refills: 1 ANAIS P.A., ELIGIO * Start : 19-Jan-2019 Active Eletriptan Hydrobromide 20 MG Oral Tablet TAKE 1 TABLET AT ONSET OF MIGRAINE. MAY REPEAT ONCE AFTER 2 HOURS. MAX 2 DOSES/2 4 HOURS. * Quantity: 30 Refills: 1 YAMILE VELAZQUEZ * Start : 19-Jan-2019 Active diazePAM 5 MG Oral Tablet TAKE 1 TABLET TWICE DAILY. * Quantity: 60 Refills: 1 ANAIS P.A., ELIGIO * Start : 19-Dec-2019 Active Allergies and Adverse Reactions Name Dates Details No Known Allergies (Allergy) Status: Active Past Medical History Name Dates Details History of High cholesterol (272.0, E78.00) Status: Resolved Procedures Procedure Dates Details Bladder 11775 Date: 19-Dec-2019 Renal 67435 Date: 19-Dec-2019 History of Cholecystotomy Completed History [...] COLOR URINE yellow (Normal) APPEARANCE clear (Normal) [id number] US Retroperitoneal Complete [id number] Retroperitoneal Complete US SEE NOTES Comments: EXAM: [...] Bilateral ureteral jets are identified. Estimated volume xxs094 mL. Small postvoid residual estimated at 25 mL.Visualized portions of the IVC and aorta were within normal limits. Theproximal aorta measures up to 1.8 cm.IMPRESSION:Bilateral nonobstructing renal calculi. No hydronephrosis.--Read by: Michael Rodriguezictated Date/time: 12/20/19 15:43Electronically Signed by: Michael Rodriguez MD 12/19/2014:45FINAL REPORT [id number] [[facility]] CULTURE, URINE, ROUTINE CULTURE Comments: CULTURE, URINE, ROUTINE Micro Number: [id number] Test Status: Final Specimen Source: NOT GIVEN Specimen Quality: Adequate Result: No Growth Plan of Care Name Dates Details Planned Observations Planned Goals not documented Interventions Provided Discussion/Summary* no infection in urine. Instructions Name Dates Details Instructions not documented [...]
--- OUTSIDE RECORDS SUMMARY | 2019-12-30 06:43 | XMS REPORT | Summary of Care ---
Author Author Anais Neville M.A. Unknown Address [facility] Phone Unavailable Care Team Providers Care Orange Grower Name Role Phone ELIGIO ROBLES Unavailable Unavailable LEDYMILAGRO Mora, YAMILE Unavailable Unavailable LEDY PA [place], YAMILE MCNEILL Unavailable Unavailable SEPIDEH PARKER [place], JOLNEE Gomez Unavailable Unavailable BERNARD PARKER [place], DEE [...] P.A., ELIGIO * Start : 19-Dec-2019 Active Cyclobenzaprine HCl - 5 MG Oral Tablet TAKE 1 TABLET BY MOUTH TWO TO THREE TIMES DAILY NEEDED * Quantity: 30 Refills: 0 ANAIS P.A., ELIGIO * Start : 21-Dec-2019 Active Allergies and Adverse Reactions Name Dates Details No Known Allergies (Allergy) Status: Active Past Medical History Name Dates Details History of High cholesterol (272.0, E78.00) Status: Resolved Procedures Procedure Dates Details US Bladder 93415 Date: 19-Dec-2019 US Renal 19500 Date: 19-Dec-2019 History of Cholecystotomy Completed History [...] 21 Status: Comments: PHQ-9 Adult Depression Screening [id number]-Gps-[id number] Systolic blood pressure 135 mm[Hg] Status: Comments: [...] COLOR URINE yellow (Normal) APPEARANCE clear (Normal) 27-Frw-551802:00 US Retroperitoneal Complete 37114 Retroperitoneal Complete US SEE NOTES Comments: EXAM: [...] Bilateral ureteral jets are identified. Estimated volume eyv125 mL. Small postvoid residual estimated at 25 mL.Visualized portions of the IVC and aorta were within normal limits. Theproximal aorta measures up to 1.8 cm.IMPRESSION:Bilateral nonobstructing renal calculi. No hydronephrosis.--Read by: Michael Rodriguezictated Date/time: 12/20/19 15:43Electronically Signed by: Michael Rodriguez MD 12/19/2014:45FINAL REPORT [id number] [[facility]] CULTURE, URINE, ROUTINE CULTURE Comments: CULTURE, URINE, ROUTINE Micro Number: [id number] Test Status: Final Specimen Source: NOT GIVEN Specimen Quality: Adequate Result: No Growth Plan of Care Name Dates Details Planned Observations Planned Goals not documented Interventions Provided Medication Changes* Cyclobenzaprine HCl - 5 MG Oral Tablet - Start Instructions Name Dates Details Instructions not documented [...]
--- OUTSIDE RECORDS SUMMARY | 2019-12-30 06:43 | XMS REPORT | Summary of Care ---
Author Author ELIGIO ROBLES Organization Unknown Address Unknown Phone Unavailable Care Team Providers Care Tucking Machine Operator Name Role Phone ELIGIO ROBLES Unavailable Unavailable LEDY P.A., YAMILE Unavailable Unavailable LEDY PA [place], YAMILE MCNEILL Unavailable Unavailable SEPIDEH PARKER [place], JOLENE Gomez Unavailable Unavailable BERNARD PARKER [place], DEE DEE CALDERON Unavailable Unavailable FERNANDA PARKER, [...] Resolved Procedures Procedure Dates Details US Bladder 10367 Date: 19-Dec-2019 US Renal 99870 Date: 19-Dec-2019 History of Cholecystotomy Completed History [...] 21 Status: Comments: PHQ-9 Adult Depression Screening 96-Pyl-323545:38 Systolic blood pressure 135 mm[Hg] Status: Comments: [...] COLOR URINE yellow (Normal) APPEARANCE clear (Normal) 25-Tqa-411722:00 US Retroperitoneal Complete 68354 Retroperitoneal Complete US SEE NOTES Comments: EXAM: [...] Bilateral ureteral jets are identified. Estimated volume eim441 mL. Small postvoid residual estimated at 25 mL.Visualized portions of the IVC and aorta were within normal limits. Theproximal aorta measures up to 1.8 cm.IMPRESSION:Bilateral nonobstructing renal calculi. No hydronephrosis.--Read by: Michael Rodriguezictated Date/time: 12/20/19 15:43Electronically Signed by: Michael Rodriguez MD 12/19/2014:45FINAL REPORT [id number] [[facility]] CULTURE, URINE, ROUTINE CULTURE Comments: CULTURE, URINE, ROUTINE Micro Number: [id number] Test Status: Final Specimen Source: NOT GIVEN [...]
--- OUTSIDE RECORDS SUMMARY | 2019-12-30 06:43 | XMS REPORT | Summary of Care ---
Author Author Emilie Hernandez M.A. Organization Unknown Address [facility] Phone Unavailable Care Team Providers Care Commercial Field Inspector Name Role Phone ELIGIO ROBLES Unavailable Unavailable Emilie Hernandez M.A. Unavailable Unavailable LEDYYAMILE PHELAN Unavailable Unavailable LEDY ANGEL [place], YAMILE MCNEILL Unavailable Unavailable SEPIDEH PARKER [place], JOLENE Gomez Unavailable Unavailable BERNARD PARKER [place], DEE DEE CALDERON Unavailable Unavailable FERNANDA PARKER, [...] TABLET BY MOUTH ONCE DAILY Quantity: 90 DALLAS ROBLESICIA * Start : 01-Sep-2018 Active Etodolac 400 [...] Status: Resolved Procedures Procedure Dates Details Bladder 22687 Date: 19-Dec-2019 US Renal 72527 Date: 19-Dec-2019 History of Cholecystotomy Completed History [...] 21 Status: Comments: PHQ-9 Adult Depression Screening 17-Tkb-255051:38 Systolic blood pressure 135 mm[Hg] Status: Comments: [...] COLOR URINE yellow (Normal) APPEARANCE clear (Normal) 10-Uyw-213791:00 US Retroperitoneal Complete 75879 Retroperitoneal Complete US SEE NOTES Comments: EXAM: [...] Bilateral ureteral jets are identified. Estimated volume psl196 mL. Small postvoid residual estimated at 25 mL.Visualized portions of the IVC and aorta were within normal limits. Theproximal aorta measures up to 1.8 cm.IMPRESSION:Bilateral nonobstructing renal calculi. No hydronephrosis.--Read by: Michael Rodriguezictated Date/time: 12/20/19 15:43Electronically Signed by: Michael Rodriguez MD 12/19/2014:45FINAL REPORT [id number] [facility]] CULTURE, URINE, ROUTINE CULTURE Comments: CULTURE, URINE, ROUTINE Micro Number: [id number] Test Status: Final Specimen Source: NOT GIVEN [...]
--- OUTSIDE RECORDS SUMMARY | 2019-12-30 06:43 | XMS REPORT | Summary of Care ---
Author Author Tosin Yip M.A. Unknown Address [facility] Phone Unavailable Care Team Providers Care Student Accounts Coordinator Name Role Phone ELIGIO ROBLES Unavailable Unavailable LEDYMILAGRO Mora, YAMILE Unavailable Unavailable LEDY ANGEL [place], YAMILE MCNEILL Unavailable Unavailable SEPIDEH PARKER [place], JOLENE Gomez Unavailable Unavailable BERNARD PARKER [place], DEE DEE CALDERON Unavailable Unavailable FERNANDA PAREKR, GUIDO Ross Unavailable Unavailable Unavailable Unavailable Functional [...] Status: Resolved Procedures Procedure Dates Details Bladder 36877 Date: 19-Dec-2019 US Renal 53323 Date: 19-Dec-2019 History of Cholecystotomy Completed History [...] COLOR URINE yellow (Normal) APPEARANCE clear (Normal) 84-[id number]:00 US Retroperitoneal Complete 40113 Retroperitoneal Complete US SEE NOTES Comments: EXAM: [...] Bilateral ureteral jets are identified. Estimated volume lyq262 mL. Small postvoid residual estimated at 25 mL.Visualized portions of the IVC and aorta were within normal limits. Theproximal aorta measures up to 1.8 cm.IMPRESSION:Bilateral nonobstructing renal calculi. No hydronephrosis.--Read by: Michael Rodriguezictated Date/time: 12/20/19 15:43Electronically Signed by: Michael Rodriguez MD 12/19/2014:45FINAL REPORT [id number] [[facility]] CULTURE, URINE, ROUTINE CULTURE Comments: CULTURE, URINE, ROUTINE Micro Number: [id number] Test Status: Final Specimen Source: NOT GIVEN Specimen Quality: Adequate Result: No Growth Plan of Care Name Dates Details Planned Observations Planned Goals not documented Planned Encounters Urogynecologist Interventions Provided Medication Changes* Atorvastatin Calcium 10 MG Oral Tablet - Renew * diazePAM 5 MG Oral Tablet - Start * DULoxetine HCl - 30 MG Oral Capsule Delayed Release Particles - Renew * Olmesartan Medoxomil 5 MG Oral Tablet - Renew Labs/Procedures/Imaging* US Bladder 58333; To Be Done: 19 Dec 2019 * US Renal 48761; To Be Done: 19 Dec 2019 * [...] not documented On: 13-Jul-2018 14:00 Appointment; YAMILE VILLAFAAN P.A. Encounter Diagnosis: Problem not documented On: [...]
--- OUTSIDE RECORDS SUMMARY | 2019-12-30 06:43 | XMS REPORT | Summary of Care ---
Author Author Anais Neville M.A. Unknown Address [facility] Phone Unavailable Care Team Providers Care Hot Dog Vender Name Role Phone ELIGIO ROBLES Unavailable Unavailable LEDYMILAGRO Mora, YAMILE Unavailable Unavailable LEDY PA [place], YAMILE MCNEILL Unavailable Unavailable SEPIDEH PARKER [place], JOLENE Gomez Unavailable Unavailable BERNARD PARKER [place], DEE DEE CALDERON Unavailable Unavailable FERNANDA PARKER, [...] DAILY * Quantity: 90 Refills: 1 NAAIS P.A., ELIGIO * Start : 19-Jan-2019 Active [...] Status: Resolved Procedures Procedure Dates Details Bladder 04147 Date: 19-Dec-2019 Renal 37773 Date: 19-Dec-2019 History of Cholecystotomy Completed History [...] COLOR URINE yellow (Normal) APPEARANCE clear (Normal) 37-Cut-413839:00 US Retroperitoneal Complete 29595 Retroperitoneal Complete US SEE NOTES Comments: EXAM: [...] Bilateral ureteral jets are identified. Estimated volume woh943 mL. Small postvoid residual estimated at 25 mL.Visualized portions of the IVC and aorta were within normal limits. Theproximal aorta measures up to 1.8 cm.IMPRESSION:Bilateral nonobstructing renal calculi. No hydronephrosis.--Read by: Michael Rodriguezictated Date/time: 12/20/19 15:43Electronically Signed by: Michael Rodriguez MD 12/19/2014:45FINAL REPORT [id number] [[facility]] CULTURE, URINE, ROUTINE CULTURE Comments: CULTURE, URINE, ROUTINE Micro Number: [id number] Test Status: Final Specimen Source: NOT GIVEN Specimen Quality: Adequate Result: No Growth Plan of Care Name Dates Details Planned Observations Planned Goals not documented Planned Encounters Urogynecologist Interventions Provided Discussion/Summary* no infection in urine. [...] not documented On: 24-Sep-2018 14:15 Appointment; MANUELA HRERING APRN Encounter Diagnosis: Problem not documented On: [...]
--- OUTSIDE RECORDS SUMMARY | 2019-12-30 06:43 | XMS REPORT | Summary of Care ---
Author Author ELIGIO ROBLES Organization Unknown Address Unknown Phone Unavailable Care Team Providers Care Director Corporate Compliance Name Role Phone ELIGIO ROBLES Unavailable Unavailable LEDY P.A., YAMILE Unavailable Unavailable LEDY PA [place], YAMILE MCNEILL Unavailable Unavailable SEPIDEH PARKER [place], JOLENE Gomez Unavailable Unavailable BERNARD PARKER [place], DEE DEE CALDERON Unavailable Unavailable FERNANDA PARKER, GUIDO oRss Unavailable Unavailable Unavailable Unavailable Functional Status Name [...] Status: Resolved Procedures Procedure Dates Details Bladder 16704 Date: 19-Dec-2019 Renal 10224 Date: 19-Dec-2019 History of Cholecystotomy Completed History [...] COLOR URINE yellow (Normal) APPEARANCE clear (Normal) 42-Usx-553248:00 US Retroperitoneal Complete 18197 Retroperitoneal Complete US SEE NOTES Comments: EXAM: [...] Bilateral ureteral jets are identified. Estimated volume pni395 mL. Small postvoid residual estimated at 25 mL.Visualized portions of the IVC and aorta were within normal limits. Theproximal aorta measures up to 1.8 cm.IMPRESSION:Bilateral nonobstructing renal calculi. No hydronephrosis.--Read by: Michael Rodriguezictated Date/time: 12/20/19 15:43Electronically Signed by: Michael Rodriguez MD 12/19/2014:45FINAL REPORT [id number] [[facility]] CULTURE, URINE, ROUTINE CULTURE Comments: CULTURE, URINE, ROUTINE Micro Number: [id number] Test Status: Final Specimen Source: NOT GIVEN [...]
[2019-12-30 07:41] LABS: BASOPHILS % 0.4 % (0.0-1.0); EOSINOPHILS # (AUTO) 0.3 (0.0-0.4); EOSINOPHILS % 4.2 % (0.0-6.0); HEMATOCRIT 38.6 % (34.2-44.1); HEMOGLOBIN 12.7 g/dL (12.0-16.0); LYMPHOCYTES # (AUTO) 2.2 (1.0-3.2); LYMPHOCYTES % 27.4 % (18.0-39.1); MEAN CORPUSCULAR HEMOGLOBIN 29.5 pg (28-32); MEAN CORPUSCULAR HGB CONC 32.9 g/dL (31-35); MEAN CORPUSCULAR VOLUME 89.8 fL (81-99); MONOCYTES # (AUTO) 0.5 (0.2-0.8); MONOCYTES % 5.7 % (4.4-11.3); NEUTROPHILS # (AUTO) 4.9 (2.1-6.9); NEUTROPHILS % 61.9 % (38.7-80.0); PLATELET COUNT 484 x10e3/uL (140-360)
[2019-12-30 07:58] LABS: ANION GAP 13.6 mmol/L (8-16); BLOOD UREA NITROGEN 7 mg/dL (7-26); BUN/CREATININE RATIO 9 (6-25); CALCIUM 9.2 mg/dL (8.4-10.2); CARBON DIOXIDE 23 mmol/L (22-29); CHLORIDE 106 mmol/L (98-107); CREATININE, SERUM 0.77 mg/dL (0.57-1.11); EST GLOMERULAR FILTRATION RATE > 60 ML/MIN (60-); GLUCOSE 108 mg/dL (74-118); POTASSIUM 3.6 mmol/L (3.5-5.1); SODIUM 139 mmol/L (136-145)
--- NOTE | 2019-12-30 09:27 | Diagnostic Imaging Report ---
TECHNIQUE: Frontal views of the abdomen. INDICATION: 44-year-old woman for preoperative evaluation for ureteral stent placement. COMPARISON: None. IMPRESSION: Multiple calculi project over the right renal shadow, including a partial staghorn calculus. Evaluation for left renal calculi is limited due to overlying bowel gas/stool. Apparent 6 mm density adjacent to the left psoas muscle at the L2 level; calculus in the proximal left ureter cannot be excluded. Nonobstructive bowel gas pattern. Partial sacralization of L5 on the right. Clips project over the right upper quadrant. Signed by: Shara Whitlock MD on 12/30/2019 9:23 AM
[2019-12-30 12:00] VITALS: BP 155/85
--- NOTE | 2020-01-01 22:40 | Operative Report ---
DATE OF PROCEDURE: 12/30/2019 SURGEON: Nile Gutierrez MD PREOPERATIVE DIAGNOSES: 1. Left ureterolithiasis. 2. Right nephrolithiasis. 3. Mixed-type urinary incontinence. 4. Left renal colic. POSTOPERATIVE DIAGNOSES: 1. Left ureterolithiasis. 2. Right nephrolithiasis. 3. Left hydronephrosis due to stone. 4. Grade 1-2 cystocele. 5. Grade 1-2 rectocele. 6. Urethral hypermobility. OPERATIONS PERFORMED: Note, these were all staged procedures as part of multistaged, multistep process in managing the patient's urolithiasis. CLINICAL SUMMARY: Marya Krishnan is a 44-year-old woman, who was found to have a staghorn stone on the right-hand side and the smaller stone on the left-hand side. The patient since the CT was done, however, developed severe left-sided flank pain. The patient's pain cannot wait for management until the coronavirus infection is over. She has understands the risks of the COVID-19 infection, is willing to take those risks by coming to the hospital and having the surgery. She will have a temporary indwelling ureteral stent, requires followup and removal. She understands from the multiple surgeries. She understood all these risks and elected to proceed. OPERATIVE PROCEDURE IN DETAIL: Informed consent was verified. Marya Krishnna was properly identified, taken to the operating room, and placed on the lithotripsy table in supine position. Anesthesia was uneventfully begun. The patient's left proximal ureterolithiasis was localized with biplanar fluoroscopy. A total of 3000 shocks were delivered with fragmentation noted. The patient was then carefully and gently repositioned in dorsal lithotomy position with all pressure points well padded. Her genitalia were prepared and draped in usual sterile fashion. The cystoscope sheath with obturator in place was atraumatically inserted in the patient's urethra. Panendoscopy revealed small little tiny submillimeter stone and there were no suspicious lesions. There were no tumors. An open-ended ureteral catheter was used to cannulate each ureter and retrograde ureteropyelograms were performed. With cystoscopic and fluoroscopic guidance, bilateral indwelling ureteral stents were placed, coiled in the patient's kidneys as well as the patient's bladder. The retaining sutures were cut short. Interpretation of retrograde ureteropyelography contrast was instilled in retrograde fashion bilaterally. The right side had a very prominent staghorn calculus in the lower portion of the kidney. The upper part of the kidney appeared to be somewhat dilated. The stent was in good position, coiled in the patient's kidney as well as the patient's bladder at the end of the case. The ureter was unremarkable. Left-hand side exhibited unremarkable distal ureter except for an obstruction at the level of the proximal ureter caused by the stone. There was hydronephrosis proximal to it and the stent on the left-hand side was in good position, coiled in the patient's kidneys as well as the patient's bladder at the end of the case. The patient's bladder was drained and cystoscope was withdrawn. Pelvic examination under anesthesia revealed a grade 1-2 cystocele, grade 2 rectocele. There was urethral hypermobility. No abnormal palpable pelvic masses could be appreciated. There were no obvious mucosal lesions. The patient was then uneventfully reversed from anesthesia and taken to recovery room in stable condition. There were no complications. The patient will strain her urine. We will plan to bring the patient back to the operating room for a right ESWL as part of a multistep process in managing the patient's rather severe urolithiasis. MD SAMANTA Gallo/MITCHELL /[id number]
== END | disposition home or self-care (01) ==
LOC: OR 06:37
PROVIDERS: ATTEND Urology
DX: N13.2 Hydronephrosis with renal and ureteral calculous obstruction (principal); N39.0 Urinary tract infection, site not specified; N39.46 Mixed incontinence; R35.1 Nocturia; R80.9 Proteinuria, unspecified; N81.10 Cystocele, unspecified; N81.6 Rectocele; N36.41 Hypermobility of urethra; I10 Essential (primary) hypertension; K21.9 Gastro-esophageal reflux disease without esophagitis; E66.9 Obesity, unspecified; F32.9 Major depressive disorder, single episode, unspecified; Z68.41 Body mass index [BMI] 40.0-44.9, adult; Z80.52 Family history of malignant neoplasm of bladder
CPT/HCPCS: 36415; 50590; 52332; 74018; 80048; 83970; 84550; 84702; 85025; 93005; C1758; C1769; C2617; J0696; J1580; J2175; J2405; J2765; Q9967; J1100; J2001

== ENCOUNTER → 2020-01-13 | Day surgery (SDC) | payer BC ==
[~2020-01-13] MED LIST changes: -B&O 60MG R/S 60 MG SUPP PR ONE; -DESFLURANE 240 ML BTL INH ONE; +FAMOTIDINE 20 MG/2 ML VIAL IV ONE; +FENTANYL CITRATE/PF 100MCG/2 ML INJ ONE; -GENTAMICIN 80MG/NS 100 ML 200 ML IV ONE; -IOPAMIDOL 300MG/ML 50ML INFUS..BTL IV ONE; -MEPERIDINE HCL INJ 25 MG/ML VIAL ONE; -METOCLOPRAMIDE HCL 10 MG/2ML VIAL ONE; +MIDAZOLAM HCL 2 MG/2 ML VIAL ONE; +SEVOFLURANE INHAL SOLN 250 ML PEN BTL ONE
--- OUTSIDE RECORDS SUMMARY | 2020-01-13 06:20 | XMS REPORT | Summary of Care ---
Author Nicho Ness [facility] Unknown Address Unknown Phone Unavailable Care Team Providers Care Leadership Development Manager Name Role Phone ANAIS Mora, ELIGIO Unavailable Unavailable LEDYMILAGRO Mora, YAMILE Unavailable Unavailable LEDY ORTIZ [place], YAMILE MCNEILL Unavailable Unavailable SEPIDEH PARKER [place], JOLENE Gomez Unavailable Unavailable BERNARD PARKER [place], DEE DEE CALDERON Unavailable Unavailable FERNANDA PARKER, GUIDO Ross Unavailable Unavailable ANAIS ORTIZ, ELIGIO Unavailable Unavailable Unavailable Unavailable Functional Status Name [...] BY MOUTH ONCE DAILY Quantity: 90 ANAIS Belle.A.DALLASELIGIO * Start : 01-Sep-2018 Active Etodolac 400 MG Oral Tablet TAKE 1 TABLET TWICE DAILY. * Refills: 0 M.A. Active tiZANidine HCl - 4 MG Oral Capsule TAKE CAPSULE PRN * Refills: 0 M.A. Active DULoxetine HCl - 30 MG Oral Capsule Delayed Release Particles TAKE ONE CAPSULE BY MOUTH TWICE A DAY * Quantity: 180 Refills: 1 ANAIS Belle.A.DALLASELIGIO * Start : 12-Oct-2017 Active Gabapentin 300 MG Oral Capsule TAKE 3 CAPSULE 3 TIMES DAILY * Refills: 0 M.A. Active traMADol HCl - 50 MG Oral Tablet PRN * Refills: 0 M.A. Active Amitriptyline HCl TABS TAKE 1 TABLET DAILY * Refills: 0 M.A. Active Olmesartan Medoxomil 5 MG Oral Tablet TAKE 1 TABLET DAILY * Quantity: 90 Refills: 1 ANAIS P.A.DALLASELIGIO * Start : 19-Jan-2019 Active Eletriptan Hydrobromide 20 MG Oral Tablet TAKE 1 TABLET AT ONSET OF MIGRAINE. MAY REPEAT ONCE AFTER 2 HOURS. MAX 2 DOSES/2 4 HOURS. * Quantity: 30 Refills: 1 YAMILE VELAZQUEZ * Start : 19-Jan-2019 Active diazePAM 5 MG Oral Tablet TAKE 1 TABLET TWICE DAILY. * Quantity: 60 Refills: 1 ANAIS P.A.DALLASELIGIO * Start : 19-Dec-2019 Active Cyclobenzaprine HCl - 5 MG Oral Tablet TAKE 1 TABLET BY MOUTH TWO TO THREE TIMES DAILY NEEDED * Quantity: 30 Refills: 0 ANAIS P.A. ELIGIO * Start : 21-Dec-2019 Active Allergies and Adverse Reactions Name Dates Details No Known Allergies (Allergy) Status: Active Past Medical History Name Dates Details History of High cholesterol (272.0, E78.00) Status: Resolved Procedures Procedure Dates Details Bladder 60408 Date: 19-Dec-2019 [place] Renal 96857 Date: 19-Dec-2019 History of Cholecystotomy Completed History [...] 21 Status: Comments: PHQ-9 Adult Depression Screening 98-Cxu-752849:38 Systolic blood pressure 135 mm[Hg] Status: Comments: [...] COLOR URINE yellow (Normal) APPEARANCE clear (Normal) 22-Swb-916138:00 US Retroperitoneal Complete 72545 Retroperitoneal Complete US SEE NOTES Comments: EXAM: [...] Bilateral ureteral jets are identified. Estimated volume pol734 mL. Small postvoid residual estimated at 25 mL.Visualized portions of the IVC and aorta were within normal limits. Theproximal aorta measures up to 1.8 cm.IMPRESSION:Bilateral nonobstructing renal calculi. No hydronephrosis.--Read by: Michael Rodriguezictated Date/time: 12/20/19 15:43Electronically Signed by: Michael Rodriguez MD 12/19/2014:45FINAL REPORT [id number] [[facility]] CULTURE, URINE, ROUTINE CULTURE Comments: CULTURE, URINE, ROUTINE Micro Number: [id number] Test Status: Final Specimen Source: NOT GIVEN [...]
--- OUTSIDE RECORDS SUMMARY | 2020-01-13 06:20 | XMS REPORT | Summary of Care ---
Author Author Hanane Humphrey Organization Unknown Address Unknown Phone Unavailable Care Team Providers Care Application Support Manager Name Role Phone ANAIS Mora, ELIGIO Unavailable Unavailable Hanane Humphrey Unavailable Unavailable LEDY P.Eloisa, YAMILE Unavailable Unavailable LEDY PA [place], YAMILE MCNEILL Unavailable Unavailable SEPIDEH PARKER [place], JOLENE Gomez Unavailable Unavailable BERNARD PARKER [place], DEE DEE CALDERON Unavailable Unavailable FERNANDA PARKER, [...] TABLET BY MOUTH ONCE DAILY Quantity: 90 ELIGIO ROBLES * Start : 01-Sep-2018 Active Etodolac 400 [...] ELIGIO ROBLES * Start : 19-Dec-2019 Active Cyclobenzaprine HCl - 5 MG Oral Tablet TAKE 1 TABLET BY MOUTH TWO TO THREE TIMES DAILY NEEDED * Quantity: 30 Refills: 0 DALLAS ROBLESICIA * Start : 21-Dec-2019 Active Allergies and Adverse Reactions Name Dates Details No Known Allergies (Allergy) Status: Active Past Medical History Name Dates Details History of High cholesterol (272.0, E78.00) Status: Resolved Procedures Procedure Dates Details US Bladder 66424 Date: 19-Dec-2019 US Renal 16444 Date: 19-Dec-2019 History of Cholecystotomy Completed History [...] 21 Status: Comments: PHQ-9 Adult Depression Screening 09-Jgs-056482:38 Systolic blood pressure 135 mm[Hg] Status: Comments: [...] COLOR URINE yellow (Normal) APPEARANCE clear (Normal) 02-Dwq-136606:00 US Retroperitoneal Complete 10498 Retroperitoneal Complete US SEE NOTES Comments: EXAM: [...] Bilateral ureteral jets are identified. Estimated volume rpb571 mL. Small postvoid residual estimated at 25 mL.Visualized portions of the IVC and aorta were within normal limits. Theproximal aorta measures up to 1.8 cm.IMPRESSION:Bilateral nonobstructing renal calculi. No hydronephrosis.--Read by: Mihcael Rodriguezictated Date/time: 12/20/19 15:43Electronically Signed by: Michael Rodriguez MD 12/19/2014:45FINAL REPORT [id number] [[facility]] CULTURE, URINE, ROUTINE CULTURE Comments: CULTURE, URINE, ROUTINE Micro Number: [id number] Test Status: Final Specimen Source: NOT GIVEN [...]
--- NOTE | 2020-01-13 10:15 | Diagnostic Imaging Report ---
Exam: KUB - 2 views Indication: Preoperative Comparison: KUB 12/30/2019 Findings: Right and left internal nephroureteral stents in place. Right lower pole staghorn calculus. Left lower pole renal calculi measure up to 4 mm. Nonobstructive bowel gas pattern. No free air. No acute osseous injury. Impression: Bilateral nephroureteral stents in place. Bilateral renal calculi as above. Signed by: Ayanna Thayer MD on 01/13/2020 10:12 AM
[2020-01-13 10:25] VITALS: BP 128/78
--- NOTE | 2020-01-14 14:31 | Operative Report ---
DATE OF PROCEDURE: 01/13/2020 SURGEON: Nile Gutierrez MD PREOPERATIVE DIAGNOSIS: Right nephrolithiasis. POSTOPERATIVE DIAGNOSIS: Right nephrolithiasis. OPERATIONS PERFORMED: 1. Staged right-sided extracorporeal shockwave lithotripsy. 2. Supervision of fluoroscopy, no radiologist present. ANESTHESIA: General. COMPLICATIONS: None. CLINICAL SUMMARY: Marya Krishnan is a 44-year-old woman with bilateral nephrolithiasis. She underwent left-sided extracorporeal shock lithotripsy with insertion of a stent with obstructing large stone. KUB today reveals residual stone fragments in the lower pole calyx, which hopefully should be passable. 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 The staghorn calculus was fully encased in the lower pole calices, but it was emerging into the renal pelvis and was obstructing the patient's right kidney as well. Stenting was performed at the time of lithotripsy. The patient was brought to the operating room today for another staged lithotripsy. She is aware of the risks of bleeding, infection, injury to adjacent structures, need for additional procedures and elected to proceed. This procedure is not elected and absolutely appropriate to be performed during COVID-19 emergency situation. The patient has nephrolithiasis, which is extensive delaying the surgeries will allow stone progression, stone enlargement, stent encrustation, as well as persistent pain, which would be prolonged as a result of her indwelling ureteral stents. The patient also understands the risks of leaving her home and being supposed to coronavirus versus delaying this procedure, and elected to proceed with surgery as planned. She is aware of the risks of bleeding, infection, injury to adjacent structures. She understands she will need additional procedures and she elected to proceed. She also knows she has temporary indwelling ureteral stents, requires followup and removal. OPERATIVE PROCEDURE IN DETAIL: Informed consent was verified and Marya Krishnan was properly identified and taken to the operating room, placed on the lithotripsy table in supine position. Anesthesia was uneventfully begun. The patient's right nephrolithiasis was localized with biplanar fluoroscopy. A total of 3000 shocks were delivered to the distal most half of the patient's large staghorn calculus. Fragmentation was noted. We did not treat the most inferior portion of the staghorn stone. The patient was then uneventfully reversed from anesthesia and taken to recovery in stable condition. There were no complications to the procedure. The patient tolerated the procedure well. Explicit postop instructions were given. Plans will be to return the patient to the operating room in several weeks for another right ESWL. MD SAMANTA Gallo/MITCHELL /[id number]
== END | disposition home or self-care (01) ==
LOC: OR 06:16
PROVIDERS: ATTEND Urology
DX: N20.0 Calculus of kidney (principal); Z96.0 Presence of urogenital implants; N39.0 Urinary tract infection, site not specified; R35.1 Nocturia; N39.46 Mixed incontinence; R80.9 Proteinuria, unspecified; I10 Essential (primary) hypertension; E66.9 Obesity, unspecified; Z68.41 Body mass index [BMI] 40.0-44.9, adult; Z80.52 Family history of malignant neoplasm of bladder
CPT/HCPCS: 50590; 74018; 81025; J0696; J1100; J2001; J2250; J2405; J2704; J3010

== ENCOUNTER → 2020-01-25 | Day surgery (SDC) | payer BC ==
--- NOTE | 2020-01-23 10:56 | Diagnostic Imaging Report ---
Exam: KUB - 2 views Indication: Preoperative Comparison: KUB of 01/13/2020 Findings: Right and left internal nephroureteral stents in place. Again seen is staghorn calculus of the right lower pole. Interval migration of several stone fragments (measuring up to 2.9 cm) to the right proximal ureter and to the region of the ureterovesical junction (8 mm). Unchanged 4 mm left lower pole renal calculus. Impression: Internal nephroureteral stents in place. Interval migration of some fragments of right lower pole staghorn calculus to the right proximal and right distal ureter as above. Unchanged left renal calculus. Signed by: Ayanna Thayer MD on 01/23/2020 10:52 AM
[~2020-01-25] MED LIST changes: -FAMOTIDINE 20 MG/2 ML VIAL IV ONE; +METOCLOPRAMIDE HCL 10 MG/2ML VIAL ONE
[2020-01-25 09:00] VITALS: BP 122/69
--- NOTE | 2020-01-25 20:26 | Operative Report ---
DATE OF PROCEDURE: 01/25/2020 SURGEON: Nile Gutierrez MD PREOPERATIVE DIAGNOSIS: Right nephrolithiasis. POSTOPERATIVE DIAGNOSIS: Right nephrolithiasis. OPERATIONS PERFORMED: 1. Staged right-sided extracorporeal shockwave lithotripsy. 2. Supervision of fluoroscopy, no radiologist present. ANESTHESIA: General. COMPLICATIONS: None. CLINICAL SUMMARY: Marya Krishnan is a 44-year-old woman with bilateral nephrolithiasis. She has undergone bilateral ESWL. The patient has a right staghorn calculus and is brought for another staged procedure. She is aware of the risks of bleeding, infection, injury to adjacent structures, the definite need for additional procedures and removal of stents. She understood all these risks and elected to proceed. This procedures done during the COVID-19 emergency situation due to the fact that it is not elective. The patient has extremely risk of stone growth and damage to her kidneys. She also has a temporary indwelling ureteral stents, which are foreign bodies, and no stone growth and additional complications. Infection is an additional complication to delay the procedure. OPERATIVE PROCEDURE IN DETAIL: Informed consent was verified. Marya Krishnan was properly identified, taken to the operating room, and placed on the lithotripsy table in the supine position. Anesthesia was uneventfully begun. The patient's right nephrolithiasis was localized with biplanar fluoroscopy. A total of 3000 shocks were delivered, distributed among various stones that were visible. Fragmentation was noted. The patient was then uneventfully reversed from anesthesia and taken to the recovery room in stable condition. There were no complications to the procedure. The patient tolerated the procedure well. Explicit postop instructions were given. We will plan on returning the patient to the operating room in several weeks to remove her stent, perform bilateral ureteroscopy with possible laser. Nile Gutierrez MD [place]/MODL /[id number]
== END | disposition home or self-care (01) ==
LOC: OR 05:10
PROVIDERS: ATTEND Urology
DX: N20.0 Calculus of kidney (principal); Z96.0 Presence of urogenital implants; N39.0 Urinary tract infection, site not specified; R35.1 Nocturia; N39.46 Mixed incontinence; E66.9 Obesity, unspecified; R80.9 Proteinuria, unspecified; I10 Essential (primary) hypertension; K21.9 Gastro-esophageal reflux disease without esophagitis; M19.90 Unspecified osteoarthritis, unspecified site; F32.9 Major depressive disorder, single episode, unspecified; F41.9 Anxiety disorder, unspecified; Z01.812 Encounter for preprocedural laboratory examination; Z01.818 Encounter for other preprocedural examination; Z11.59 Encounter for screening for other viral diseases; Z68.41 Body mass index [BMI] 40.0-44.9, adult; Z80.52 Family history of malignant neoplasm of bladder
CPT/HCPCS: 50590; 74018; 81025; 87635; 88300; J0696; J1100; J2001; J2250; J2405; J2704; J2765; J3010

== ENCOUNTER → 2020-02-17 | Day surgery (SDC) | payer BC, OTHER ==
--- NOTE | 2020-02-14 15:36 | Diagnostic Imaging Report ---
TECHNIQUE: 2 frontal images of the abdomen. HISTORY: ^[id number] ^[id number] ^PRE-OP. COMPARISON: 01/23/2020. IMPRESSION: Bilateral double-J ureteral stents are in place. Multiple calcifications overlie the right anterior renal pelvis and proximal ureter. Nonobstructive radiographic bowel gas pattern. No acute bony abnormality. No free air within the imaged abdomen. Signed by: Ottoniel Muhammad MD on 02/14/2020 3:33 PM
[~2020-02-17] MED LIST changes: +ACETAMINOPHEN 1000 MG/100 ML 100 ML IV ONE; +B&O 60MG R/S 60 MG SUPP PR ONE; +ETOMIDATE 2 MG/ML 10 ML INJ IV ONE; -FENTANYL CITRATE/PF 100MCG/2 ML INJ ONE; +IOPAMIDOL 300MG/ML 50ML INFUS..BTL IV ONE; -MIDAZOLAM HCL 2 MG/2 ML VIAL ONE; -PROPOFOL IV EMULSION 10 MG/ML 20 ML VIAL ONE
[2020-02-17 13:30] VITALS: BP 130/84
--- NOTE | 2020-02-19 02:45 | Operative Report ---
DATE OF PROCEDURE: 02/17/2020 SURGEON: Nile Gutierrez MD PREOPERATIVE DIAGNOSES: 1. Bilateral nephrolithiasis. 2. Bilateral indwelling ureteral stents. POSTOPERATIVE DIAGNOSES: 1. Bilateral nephrolithiasis. 2. Right ureterolithiasis. 3. Bilateral indwelling ureteral stent. 4. Grade 2 cystocele. 5. Urethral hypomobility. OPERATIONS PERFORMED: Note: These were all staged procedures, as part of multi-staged and multi-step process of managing the patient's urolithiasis. 1. Cystourethroscopy with complicated removal of bilateral indwelling ureteral stents (separate procedure performed for the diagnosis of stents). 2. Left ureteroscopy with stone manipulation and extraction (separate procedure performed for the left nephrolithiasis). 3. Right semi-rigid ureteroscopy with extraction of multiple right ureteral stones (separate procedure performed for the right ureteral stones). 4. Right flexible ureteropyeloscopy with extensive holmium laser lithotripsy and extraction of at least 50 stone fragments (separate procedure performed for the right nephrolithiasis) along with insertion of right indwelling ureteral stents. 5. Radiological services with supervision and interpretation of ureteroscopy. No radiologist present. 6. Interpretation of retrograde ureteropyelography, no radiologist present. 7. Supervision of fluoroscopy, more than 1 hour, no radiologist present. 8. Pelvic examination under anesthesia. ANESTHESIA: General. COMPLICATIONS: None. CLINICAL SUMMARY: Marya Krishnan is a 44-year-old woman with bilateral nephrolithiasis. She has undergone bilateral ESWL. The stone burden on the right was very extensive with a staghorn stone required multiple procedures. She was brought to the operating room today to be one step closer to being stone free. She is aware of the risks of bleeding, infection, injury to adjacent structures, need for additional procedures and elected to proceed. OPERATIVE PROCEDURE IN DETAIL: Informed consent was verified, Marya Krishnan was properly identified and taken to the operating room, placed on the cystoscopy table in supine position. Anesthesia was uneventfully begun. The patient was then carefully gently repositioned in dorsal lithotomy position. All pressure points were well padded. The genitalia were prepared and draped in usual sterile fashion. The cystoscope sheath with an obturator in place, was atraumatically inserted into the patient's urethra and bladder was drained. Panendoscopy revealed no suspicion mucosal lesions, no tumors, no stones, and no diverticula. There were stents emerging from both ureteral orifices and the retaining suture that was cut short managed to tie themselves together as the both stents were tied together in the midline in the bladder. We placed the guidewire into the left ureter and guided to the level of the patient's kidney. The stent was grasped pulled out of the urethral meatus. A semi-rigid ureteroscope was then placed alongside the guidewire into the distal left ureter. There were no stones within the distal left ureter secondary guidewire was placed. We then used utilized a flexible ureteroscopy sheath, introduced it and then through the flexible ureteroscopy sheath we introduced a flexible ureteroscope into the patient's left kidney, where multiple small fragments were identified. Each fragment was grasped with Nitinol tipless basket and extracted atraumatically. All fragments were extracted from the left kidney, except for some fine sand which was irrigated loose from the mucosa. We carefully examined the left ureter. As we exited, there were no stones remaining and there were no strictures, there was no obstruction. Therefore, no stent was left in the left hand side. A guidewire was then placed into the right ureter and guided to the level of the patient's kidney. The stent was completely removed and discarded. A semi-rigid ureteroscope was then placed alongside the guidewire and guided into the patient's ureter. We identified numerous stones. These stones were all grasped with Nitinol tipless basket and extracted. Flexible ureteroscope was then brought up into the patient's kidney, and we identified multiple stones. The stones were too large to maneuver into the ureter without injury and most likely without success. Therefore, Holmium laser lithotripsy was required. We performed Holmium laser lithotripsy of numerous stones, fragmenting all the stones into smaller fragments. We then made countless passes with the ureteroscope each time grasping one or two stone fragments and extracting them over 50 stones and stone fragments were extracted. Careful panendoscopy of the intrarenal collecting system revealed sand, but no large stone burden was left behind. Due to the manipulation with cystoscopic and fluoroscopic guidance. An indwelling ureteral stent was then placed, it was coiled in the patient's kidney as well as the patient's bladder. The retaining suture was cut short. The patient's bladder was drained. Cystoscope was withdrawn. Pelvic examination under anesthesia revealed a grade 2 cystocele with urethral hypermobility. No abnormal palpable pelvic masses could be appreciated. There were no obvious mucosal lesions. The patient was then uneventfully reversed from anesthesia and taken to recovery room in stable condition. Interpretation of retrograde ureteropyelography contrast was instilled in retrograde fashion bilaterally. There was mild fullness of both collecting systems. Both sides of calices were relatively sharp upon beginning the case. The stent was in good position, coiled the patient's kidneys as well as the patient's bladder at the end of the case. There were no complications to the procedure, she tolerated the procedure well. PLANS: Plans will be to return the patient to the operating room to remove her stent, perform a right ureteroscopy and hopefully render the patient stent-free and stone-free at the next procedure. MD SAMANTA Gallo/GALL /[id number]
== END | disposition home or self-care (01) ==
LOC: OR 09:11
PROVIDERS: ATTEND Urology
DX: N20.0 Calculus of kidney (principal); N20.1 Calculus of ureter; N81.10 Cystocele, unspecified; Z46.6 Encounter for fitting and adjustment of urinary device; N36.41 Hypermobility of urethra; K21.9 Gastro-esophageal reflux disease without esophagitis; I10 Essential (primary) hypertension; F41.9 Anxiety disorder, unspecified; F32.9 Major depressive disorder, single episode, unspecified; Z01.812 Encounter for preprocedural laboratory examination; Z01.818 Encounter for other preprocedural examination; Z11.59 Encounter for screening for other viral diseases
CPT/HCPCS: 52332; 52352; 52356; 74018; 74420; 81025; 87635; 88300; C1766; C1769; C2617; J0131; J0696; J1100; J2001; J2405; J2765; Q9967

== ENCOUNTER 2020-02-18 22:00 | Emergency (ER) | payer BC, OTHER ==
[~2020-02-18] VITALS: Ht 167.6 cm; Wt 109.8 kg
[~2020-02-18 22:00] MED LIST changes: -ACETAMINOPHEN 1000 MG/100 ML 100 ML IV ONE; -B&O 60MG R/S 60 MG SUPP PR ONE; -CEFTRIAXONE SOD 1 GM/NS 50 ML 50 ML IV ONE; -DEXAMETHASONE SOD PHOS INJ 4 MG/ML VIAL ONE; -ETOMIDATE 2 MG/ML 10 ML INJ IV ONE; -IOPAMIDOL 300MG/ML 50ML INFUS..BTL IV ONE; -LIDOCAINE HCL 2% LOCAL INJ 5 ML SDV VIAL INJ ONE; -METOCLOPRAMIDE HCL 10 MG/2ML VIAL ONE; -ONDANSETRON HCL INJ 2MG/ML 2ML 2 MG/ML VIAL ONE; -SEVOFLURANE INHAL SOLN 250 ML PEN BTL ONE
--- OUTSIDE RECORDS SUMMARY | 2020-02-18 22:02 | XMS REPORT ---
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 NEGATIVE N PROTEIN; Abnormal (test code = 01140-8) TRACE NEGATIVE A NITRITE (test code = NITRITE) NEGATIVE NEGATIVE N LEUKOCYTE ESTERASE (test code = LEUKOCYTE ESTERASE) 1+ NE GATIVE A WBC; Abnormal (test code = 6690-2) 10-20 < OR = 5 A RBC; Normal (test code = 789-8) 0-2 < OR = 2 N SQUAMOUS EPITHELIAL CELLS; Normal (test code = 38217-1) NONE SEEN < OR = 5 N BACTERIA; Normal (test code = 630-4) NONE SEEN NONE SEEN N HYALINE CAST; Normal (test code = 21266-0) NONE SEEN NONE SEEN N [facility][] REFLEXIVE URINE [id number] 14:56:00* Test Item Value Reference Range Interpretation Comments REFLEXIVE URINE CULTURE (test code = REFLEXIVE URINE C ULTURE) CULTURE INDICATED - RESULTS TO FOLLOW [facility]] CULTURE, URINE, [id number] 14:56:00* Test Item Value Reference Range Interpretation Comments CULTURE (test code = CULTURE) See Comment CULTURE, URINE, ROUTINE Micro Number: [id number] Test Status: Final Specimen Source: URINE Specimen Quality: Adequate Result: Multiple organisms present, each less than 10,000 CFU/mL. These organisms, commonly found on external and internal genitalia, are considered to be colonizers. No further testing performed. [facility]] LIPID [id number] 08:48:00* Test Item Value Reference Range Interpretation Comments CHOLESTEROL, TOTAL; Normal (test code = 2093-3) 184 mg/dl <200 N HDL CHOLESTEROL; Normal (test code = 2085-9) 56 mg/dl >50 N TRIGLYCERIDES; Normal (test code = 2571-8) 126 mg/dl <150 N LDL-CHOLESTEROL; Above High Threshold (test code = 67363-8) 105 {MG/DL LONA} Reference range: <100 Desirable range <1 00 mg/dL for primary prevention; <70 mg/dL for patients with CHD or diabetic patients with > or = 2 CHD risk factors. LDL-C is now calculated using the Irma calculation, which is a validated novel method providing better accuracy than the Friedewald equation in the estimation of LDL-C. Jamal SS et al. JUSTIN. 2013;310(45): 4999-8077 (http ://[employer] It/faq/XET736) CHOL/HDLC RATIO (test code = CHOL/HDLC RATIO) 3.3 {CALC} <5.0 N NON HDL CHOLESTEROL (test code = NON HDL CHOLESTEROL) 128 {MG/DL C AL} <130 N For patients with diabetes plus 1 major ASCVD risk factor, treating to a non-HDL-C goal of <100 mg/dL (LDL-C of <70 mg/dL) is considered a therapeutic option. [facility]] CMP [id number] 08:48:00* Test Item Value Reference Range Interpretation Comments GLUCOSE; Normal (test code = 1547-9) 98 mg/dl 65-99 N Fasting reference interval UREA NITROGEN (BUN) (test code = UREA NITROGEN (BUN)) 12 mg/dl 7-25 N CREATININE (test code = CREATININE) 0.80 mg/dl 0.50-1.10 N eGFR NON- (test code = eGFR NON-FAITH N GUINEAN) 91 {ML/MIN/1.7} > OR = 60 N eGFR (test code = eGFR ) 10 5 {ML/MIN/1.7} > OR = 60 N BUN/CREATININE RATIO (test code = BUN/CREATININE RATIO) NOT APPLICA BLE 6-22 SODIUM (test code = SODIUM) 140 mmol/L 135-146 N POTASSIUM (test code = POTASSIUM) 4.5 mmol/L 3.5-5.3 N CHLORIDE (test code = CHLORIDE) 105 mmol/L 98-110 N CARBON DIOXIDE (test code = CARBON DIOXIDE) 28 mmol/L 20-32 N CALCIUM (test code = CALCIUM) 9.1 mg/dl 8.6-10.2 N PROTEIN, TOTAL (test code = PROTEIN, TOTAL) 7.0 g/dl 6.1-8.1 N ALBUMIN (test code = ALBUMIN) 3.7 g/dl 3.6-5.1 N GLOBULIN (test code = GLOBULIN) 3.3 {G/DL CALC} 1.9-3.7 N ALBUMIN/GLOBULIN RATIO (test code = ALBUMIN/GLOBULIN RATIO) 1.1 {CALC} 1.0-2.5 N BILIRUBIN, TOTAL; Normal (test code = 31911-5) 0.9 mg/dl 0.2-1.2 N ALKALINE PHSPHATASE (test code = ALKALINE PHSPHATASE) 92 u/l 33-115 N AST; Normal (test code = 1916-6) 11 u/l 10-30 N ALT; Normal (test code = 1742-6) 13 u/l 6-29 N [facility]] URINALYSIS, COMPLETE W/REFLEX TO CULTURE 2019-08-10 08:48:00* Test Item Value Reference Range Interpretation Comments COLOR; Normal (test code = 5778-6) YELLOW YELLOW N APPEARANCE (test code = APPEARANCE) CLEAR CLEAR N SPECIFIC GRAVITY; Normal (test code = 2965-2) 1.023 1.001-1. 035 N PH; Normal (test code = 2756-5) 6.5 5.0-8.0 N GLUCOSE; Normal (test code = 1547-9) NEGATIVE NEGATIVE N BILIRUBIN; Normal (test code = 52282-2) NEGATIVE NEGATIVE N KETONES; Normal (test code = 10832-5) NEGATIVE NEGATIVE N OCCULT BLOOD; Abnormal (test code = 25773-0) 3+ NEGATIVE A PROTEIN; Abnormal (test code = 06611-3) 1+ NEGATIVE A NITRITE (test code = NITRITE) NEGATIVE NEGATIVE N LEUKOCYTE ESTERASE (test code = LEUKOCYTE ESTERASE) 1+ NE GATIVE A WBC; Abnormal (test code = 6690-2) 10-20 < OR = 5 A RBC; Abnormal (test code = 789-8) 40-60 < OR = 2 A SQUAMOUS EPITHELIAL CELLS (test code = 58623-2) 0-5 < OR = 5 BACTERIA; Normal (test code = 630-4) NONE SEEN NONE SEEN N HYALINE CAST; Abnormal (test code = 10677-7) 0-5 NONE SEEN A [facility][Q] REFLEXIVE URINE [id number] 08:48:00* Test Item Value Reference Range Interpretation Comments REFLEXIVE URINE CULTURE (test code = REFLEXIVE URINE C ULTURE) CULTURE INDICATED - RESULTS TO FOLLOW [facility]] CBC (INCLUDES DIFF/PLT)2019-08-10 08:48:00* Test Item Value Reference Range Interpretation Comments WHITE BLOOD CELL COUNT (test code = WHITE BLOOD CELL COUNT) 5.7 {Thousand/u} 3.8-10.8 N RED BLOOD CELL COUNT (test code = RED BLOOD CELL COUNT) 3.94 {Million/uL} 3.80-5.10 N HEMAGLOBIN; Normal (test code = 38395-2) 11.7 g/dl 11.7-15.5 N HEMATOCRIT; Below Low Threshold (test code = 4544-3) 34.7 % 3 5.0-45.0 MCV; Normal (test code = 787-2) 88.1 fL 80.0-100.0 N MCHC; Normal (test code = 55449-5) 33.7 g/dl 32.0-36.0 N RDW; Normal (test code = 788-0) 12.5 % 11.0-15.0 N PLATELET COUNT; Normal (test code = 777-3) 391 {Thousand/u} 140-400 N MPV; Normal (test code = 57922-0) 9.1 fL 7.5-12.5 N ABSOLUTE NEUTROPHILS (test code = ABSOLUTE NEUTROPHILS) 3283 {cells/uL} 4508-8614 N ABSOLUTE LYMPHOCYTES (test code = ABSOLUTE LYMPHOCYTES) 1773 {cells/uL} 850-3900 N ABSOLUTE MONOCYTES (test code = ABSOLUTE MONOCYTES) 456 {cells/uL} 200-950 N ABSOLUTE EOSINOPHILS (test code = ABSOLUTE EOSINOPHILS) 148 {cells/ uL} 15-500 N ABSOLUTE BASOPHILS (test code = ABSOLUTE BASOPHILS) 40 {cells/uL} 0 -200 N NEUTROPHILS (test code = NEUTROPHILS) 57.6 % N LYMPHOCYTES (test code = LYMPHOCYTES) 31.1 % N MONOCYTES; Normal (test code = 78856-2) 8.0 % N EOSINOPHILS; Normal (test code = 51475-0) 2.6 % N BASOPHILS; Normal (test code = 93637-7) 0.7 % N [facility]] TSH, 3RD GENERATION W/REFLEX TO FT4 2019-08-10 08:48:00* Test Item Value Reference Range Interpretation Comments TSH, 3RD GENERATION W/REFLEX TO FT4 (sae t code = TSH, 3RD GENERATION W/REFLEX TO FT4) 2.24 {MIU/L} N Reference Range > or = 20 Years 0.40-4.50 Ranges First trimester 0.26-2.66 Second trimester 0.55-2.73 Third trimester 0.43-2.91 [facility]] CULTURE, URINE, [id number] 08:48:00* Test Item Value Reference Range Interpretation Comments CULTURE (test code = CULTURE) See Comment CULTURE, URINE, ROUTINE MICRO NUMBER: [id number] TEST STATUS: FINAL SPECIMEN SOURCE: URINE SPECIMEN QUALITY: ADEQUATE Result: Multiple organisms present, each less than 10,000 CFU/mL. These organisms, commonly found on external and internal genitalia, are considered to be colonizers. No further testing performed. [facility][O] Flu Test (in Office )2018-09-24 15:25:00* Test Item Value Reference Range Interpretation Comments Flu A (test code = Flu A) NEGATIVE N Flu B (test code = Flu B) NEGATIVE N [facility]] CMP [id number] 11:12:00* Test Item Value Reference Range Interpretation Comments GLUCOSE; Normal (test code = 1547-9) 87 mg/dl 65-99 N Fasting reference interval UREA NITROGEN (BUN) (test code = UREA NITROGEN (BUN)) 10 mg/dl 7-25 N CREATININE (test code = CREATININE) 0.73 mg/dl 0.50-1.10 N eGFR NON- (test code = eGFR NON-FAITH N GUINEAN) 102 {ML/MIN/1.7} > OR = 60 N eGFR (test code = eGFR ) 11 9 {ML/MIN/1.7} > OR = 60 N BUN/CREATININE RATIO (test code = BUN/CREATININE RATIO) NOT APPLICA BLE 6-22 SODIUM (test code = SODIUM) 139 mmol/L 135-146 N POTASSIUM (test code = POTASSIUM) 5.3 mmol/L 3.5-5.3 N CHLORIDE (test code = CHLORIDE) 104 mmol/L 98-110 N CARBON DIOXIDE (test code = CARBON DIOXIDE) 28 mmol/L 20-32 N CALCIUM (test code = CALCIUM) 9.0 mg/dl 8.6-10.2 N PROTEIN, TOTAL (test code = PROTEIN, TOTAL) 6.9 g/dl 6.1-8.1 N ALBUMIN (test code = ALBUMIN) 3.7 g/dl 3.6-5.1 N GLOBULIN (test code = GLOBULIN) 3.2 {G/DL CALC} 1.9-3.7 N ALBUMIN/GLOBULIN RATIO (test code = ALBUMIN/GLOBULIN RATIO) 1.2 {CALC} 1.0-2.5 N BILIRUBIN, TOTAL; Normal (test code = 66914-9) 0.9 mg/dl 0.2-1.2 N ALKALINE PHSPHATASE (test code = ALKALINE PHSPHATASE) 99 u/l 33-115 N AST; Normal (test code = 1916-6) 11 u/l 10-30 N ALT; Normal (test code = 1742-6) 10 u/l 6-29 N [facility]] CBC (INCLUDES DIFF/PLT)2018-09-22 11:12:00* Test Item Value Reference Range Interpretation Comments WHITE BLOOD CELL COUNT (test code = WHITE BLOOD CELL COUNT) 5.0 {Thousand/u} 3.8-10.8 N RED BLOOD CELL COUNT (test code = RED BLOOD CELL COUNT) 4.18 {Million/uL} 3.80-5.10 N HEMAGLOBIN; Normal (test code = 15221-9) 12.2 g/dl 11.7-15.5 N HEMATOCRIT; Normal (test code = 4544-3) 37.1 % 35.0-45.0 N MCV; Normal (test code = 787-2) 88.8 fL 80.0-100.0 N MCHC; Normal (test code = 99050-8) 32.9 g/dl 32.0-36.0 N RDW; Normal (test code = 788-0) 12.4 % 11.0-15.0 N PLATELET COUNT; Above High Threshold (test code = 777-3) 405 {Thousand/u} 140-400 MPV; Normal (test code = 06329-5) 9.2 fL 7.5-12.5 N ABSOLUTE NEUTROPHILS (test code = ABSOLUTE NEUTROPHILS) 2840 {cells/uL} 3502-4765 N ABSOLUTE LYMPHOCYTES (test code = ABSOLUTE LYMPHOCYTES) 1615 {cells/uL} 850-3900 N ABSOLUTE MONOCYTES (test code = ABSOLUTE MONOCYTES) 385 {cells/uL} 200-950 N ABSOLUTE EOSINOPHILS (test code = ABSOLUTE EOSINOPHILS) 130 {cells/ uL} 15-500 N ABSOLUTE BASOPHILS (test code = ABSOLUTE BASOPHILS) 30 {cells/uL} 0 -200 N NEUTROPHILS (test code = NEUTROPHILS) 56.8 % N LYMPHOCYTES (test code = LYMPHOCYTES) 32.3 % N MONOCYTES; Normal (test code = 86978-0) 7.7 % N EOSINOPHILS; Normal (test code = 60441-0) 2.6 % N BASOPHILS; Normal (test code = 89320-8) 0.6 % N [facility] BRAIN [id number] 17:39:00 [place] [address] Patient Name: CHEYENNE ARNETT MR #: [id number] : 1975 Age/Sex: 43/F Req #: [id number] Adm Physician: Ordered by: GABRIELE MABRY NP Report #: [id number] Location: ER Room/Bed: Procedure: 1016-[address]/CT BRAIN WO Exam Date: 07/13/18 Exam Time: 1625 REPORT STATUS: Signed History: Dizziness Comparison studies: MRI brain 07/23/2010 Technique: Axial im ages were obtained from the skull base to the vertex. Coronal and sagittal r econstructions obtained from the axial data. Dose modulation, iterative recons truction, and/or weight based adjustment of the mA/kV was utilized to reduce t he radiation dose to as low as reasonably achievable. Findings: Scal p/skull: No abnormalities. No fractures, blastic or lytic lesions. Extra -axial spaces: No masses. No fluid collections. Brain sulci: Appropriat e for age. Ventricles: Normal in size and configuration. No hydrocephalus. Parenchyma: No abnormal densities. No masses, hemorrhage, acute or chron ic cortical vascular insults. Sellar/suprasellar region: No abnormalities Craniocervical junction: Patent foramen magnum. No Chiari one malformation. IMPRESSION: No abnormalities . Signed by: DR Jose L Gambino M.D. on 07/13/2018 5:40 PM Dictated By: JOSE L DUKE MD Electronic ally Signed By: JOSE L DUKE MD on 07/13/181739 Transcribed By: CA on 07/13/181739 COPY TO: GABRIELE MABRY [employer]LEGE ARCHIVIST CHEST SINGLE (PORTABLE)2018-07-13 17:00:00 [place] [address] Patient Name: CHEYENNE ARNETT MR #: [id number] : 1975 Age/Sex: 43/F Req #: [id number] Adm Physician: Ordered by: GABRIELE MABRY COLLEGE ARCHIVIST Report #: [id number] Location: ER Room/Bed: Procedure: [id number] 6 DX/CHEST SINGLE (PORTABLE) Exam Date: 07/13/18 Exa m Time: 1625 REPORT STATUS: Signed Examination: Single AP view of the chest. COMPARISON: None. INDICAT ION: Dizziness, nausea, IMPRESSION: 1. Lines and Tubes: None 2 . Lungs are grossly clear. No consolidation or effusion. 3. Cardiomediastin al silhouette is normal. Pulmonary vasculature is normal. 4. No acute bony abnormalities. Signed by: Dr. Yair Siegel M.D. on 07/13/2018 5:00 PM Dictated By: YAIR SIEGEL MD 99 Transcribed By: CA on 07/13/181699 COPY TO: GABRIELE MABRY NP [] LIPID PANEL WITH REFLEX TO DIRECT [id number] 09:29:00* Test Item Value Reference Range Interpretation Comments CHOLESTEROL, TOTAL; Normal (test code = 2093-3) 195 mg/dl <200 N HDL CHOLESTEROL; Normal (test code = 2085-9) 63 mg/dl >50 N TRIGLYCERIDES; Normal (test code = 2571-8) 95 mg/dl <150 N LDL-CHOLESTEROL; Above High Threshold (test code = 42268-6) 112 {MG/DL LONA} Reference range: <100 Desirable range <1 00 mg/dL for patients with CHD ordiabetes and <70 mg/dL for diabetic patients withknown heart disease. LDL-C is now calculated using the Jamal-Reno calculation, which is a validated novel method providing better accuracy than the Friedewald equation in the estimation of LDL-C. Jamal SS et al. JUSTIN. 2013;310(19): 2647-8487 (http://education.[employer]/faq/FUT646) CHOL/HDLC RATIO (test code = CHOL/HDLC RATIO) 3.1 {CALC} <5.0 N NON HDL CHOLESTEROL (test code = NON HDL CHOLESTEROL) 132 {MG/DL C AL} <130 For patients with diabetes plus 1 major ASCVD risk factor, treating to a non-HDL-C goal of <100 mg/dL (LDL-C of <70 mg/dL) is considered a therapeutic option. [facility]] CMP [id number] 09:29:00* Test Item Value Reference Range Interpretation Comments GLUCOSE; Normal (test code = 1547-9) 89 mg/dl 65-99 N Fasting reference interval UREA NITROGEN (BUN) (test code = UREA NITROGEN (BUN)) 10 mg/dl 7-25 N CREATININE (test code = CREATININE) 0.80 mg/dl 0.50-1.10 N eGFR NON- (test code = eGFR NON-FAITH N GUINEAN) 92 {ML/MIN/1.7} > OR = 60 N eGFR (test code = eGFR ) 10 7 {ML/MIN/1.7} > OR = 60 N BUN/CREATININE RATIO (test code = BUN/CREATININE RATIO) NOT APPLICA BLE 6-22 SODIUM (test code = SODIUM) 139 mmol/L 135-146 N POTASSIUM (test code = POTASSIUM) 4.8 mmol/L 3.5-5.3 N CHLORIDE (test code = CHLORIDE) 106 mmol/L 98-110 N CARBON DIOXIDE (test code = CARBON DIOXIDE) 27 mmol/L 20-31 N CALCIUM (test code = CALCIUM) 9.5 mg/dl 8.6-10.2 N PROTEIN, TOTAL (test code = PROTEIN, TOTAL) 7.3 g/dl 6.1-8.1 N ALBUMIN (test code = ALBUMIN) 4.0 g/dl 3.6-5.1 N GLOBULIN (test code = GLOBULIN) 3.3 {G/DL CALC} 1.9-3.7 N ALBUMIN/GLOBULIN RATIO (test code = ALBUMIN/GLOBULIN RATIO) 1.2 {CALC} 1.0-2.5 N BILIRUBIN, TOTAL; Normal (test code = 02664-0) 1.2 mg/dl 0.2-1.2 N ALKALINE PHOSPHATE (test code = ALKALINE PHOSPHATE) 87 u/l 33 -115 N AST; Normal (test code = 1916-6) 12 u/l 10-30 N ALT; Normal (test code = 1742-6) 12 u/l 6-29 N ALKALINE PHSPHATASE (test code = ALKALINE PHSPHATASE) 87 u/l 33-115 N [facility]] CBC (INCLUDES DIFF/PLT)2017-10-12 09:29:00* Test Item Value Reference Range Interpretation Comments WHITE BLOOD CELL COUNT (test code = WHITE BLOOD CELL COUNT) 4.9 {Thousand/u} 3.8-10.8 N RED BLOOD CELL COUNT (test code = RED BLOOD CELL COUNT) 4.26 {Million/uL} 3.80-5.10 N HEMOGLOBIN; Normal (test code = 72261-7) 12.4 g/dl 11.7-15.5 N HEMATOCRIT; Normal (test code = 4544-3) 37.5 % 35.0-45.0 N MCV; Normal (test code = 787-2) 88.0 fL 80.0-100.0 N MCHC; Normal (test code = 89476-4) 33.1 g/dl 32.0-36.0 N RDW; Normal (test code = 788-0) 12.3 % 11.0-15.0 N PLATELET COUNT; Above High Threshold (test code = 777-3) 404 {Thousand/u} 140-400 MPV; Normal (test code = 30610-6) 9.2 fL 7.5-12.5 N ABSOLUTE NEUTROPHILS (test code = ABSOLUTE NEUTROPHILS) 2759 {cells/uL} 2415-6620 N ABSOLUTE LYMPHOCYTES (test code = ABSOLUTE LYMPHOCYTES) 1642 {cells/uL} 850-3900 N ABSOLUTE MONOCYTES (test code = ABSOLUTE MONOCYTES) 382 {cells/uL} 200-950 N ABSOLUTE EOSINOPHILS (test code = ABSOLUTE EOSINOPHILS) 78 {cells/u L} 15-500 N ABSOLUTE BASOPHILS (test code = ABSOLUTE BASOPHILS) 39 {cells/uL} 0 -200 N NEUTROPHILS (test code = NEUTROPHILS) 56.3 % N LYMPHOCYTES (test code = LYMPHOCYTES) 33.5 % N MONOCYTES; Normal (test code = 37821-5) 7.8 % N EOSINOPHILS; Normal (test code = 54009-3) 1.6 % N BASOPHILS; Normal (test code = 21905-1) 0.8 % N [facility]] TSH, 3RD GENERATION W/REFLEX TO FT4 2017-10-12 09:29:00* Test Item Value Reference Range Interpretation Comments TSH, 3RD GENERATION W/REFLEX TO FT4 (sae t code = TSH, 3RD GENERATION W/REFLEX TO FT4) 2.54 {MIU/L} N Reference Range > or = 20 Years 0.40-4.50 Ranges First trimester 0.26-2.66 Second trimester 0.55-2.73 Third trimester 0.43-2.91 [facility]
--- OUTSIDE RECORDS SUMMARY | 2020-02-18 22:03 | XMS REPORT | Summary of Care ---
Author Author CHEYENNE Yip M.A. vick Organization Unknown Address [facility] Phone Unavailable Care Team Providers Care School Crossing Guard Name Role Phone ANAIS Mora, ELIGIO Unavailable Unavailable Phi Carey, Tosin Unavailable Unavailable LEDY P.Eloisa, YAMILE Unavailable Unavailable LEDY ANGEL [place], YAMILE MCNEILL Unavailable Unavailab angelito BUNN MD [place], JOLENE Gomez Unavailable Unavailable BERNARD PARKER [place], DEE DEE CALDERON Unavailable Unavailable FERNANDA PARKER, GUIDO Ross Unavailable Unavailable ANAIS ORTIZ, ELIGIO Unavailable Unavailable Unavailable Unavailable Functional Status Name Dates Details Functional status health issues are not documented Status: Name Dates Details Cognitive status health issues are not d ocumented Status: Problems Name Dates Details Lumbar disc disease (722.93, M51.9) Status: Active Lumbar stenosis (724.02, M48.061) Status: Active Polyarthralgia (719.49, M25.50) Status: Active Allergic rhinitis, seasonal (477.9, J30. 2) Status: Active Chronic bilateral low back pain without sciatica (724.2, M54.5) Status: Active Vision disturbance (368.9, H53.9) Status: Active Dysthymia (300.4, F34.1) Status: Active Other form of dyspnea (786.09, R06.09) Status: Active Bilateral leg edema (782.3, R60.0) Status: Active Morbid obesity (278.01, E66.01) Status: Active Influenza vaccination declined (V64.06, Z28.21) Status: Active Benign essential hypertension (401.1, I1 0) Status: Active Mixed hyperlipidemia (272.2, E78.2) Status: [...] A DAY * Quantity: 180 Refills: 1 DALLAS ROBLESICIA * Start : 12-Oct-2017 Active Gabapentin 300 MG Oral Capsule TAKE 3 CAPSULE 3 TIMES DAILY * Refills: 0 Active traMADol HCl - 50 MG Oral Tablet PRN * Refills: 0 Active Amitriptyline HCl TABS TAKE 1 TABLET DAILY * Refills: 0 Active Olmesartan Medoxomil 5 MG Oral Tablet TAKE 1 TABLET DAILY * Quantity: 90 Refills: 1 DALLAS ROBLESICIA * Start : 19-Jan-2019 Active Eletriptan Hydrobromide 20 MG Oral Tablet TAKE 1 TABLET AT ONSET OF MIGRAINE. MAY REPEAT ONCE AFTER 2 HOURS. MAX 2 DOSES/2 4 HOURS. * Quantity: 30 Refills: 1 YAMILE VELAZQUEZ * Start : 19-Jan-2019 Active diazePAM 5 MG Oral Tablet TAKE 1 TABLET TWICE DAILY. * Quantity: 60 Refills: 1 ANAIS P.AVeronica ELIGIO * Start : 19-Dec-2019 Active Cyclobenzaprine HCl - 5 MG Oral Tablet TAKE 1 TABLET BY MOUTH TWO TO THREE TIMES DAILY NEEDED * Quantity: 30 Refills: 0 ANAIS P.A. ELIGIO * Start : 21-Dec-2019 Active Allergies and Adverse Reactions Name Dates Details No Known Allergies (Allergy) Status: Act nahum Past Medical History Name Dates Details History of High cholesterol (272.0, E78. 00) Status: Resolved Procedures Procedure Dates Details Bladder [id number] Date: 19-Dec-2019 [place] Ren[place] [id number] Date: 19-Dec-2019 History of Cholecystotomy Completed History of Section Completed Immunization Name Dates Details Immunizations not documented Family History Name Dates Details Family history of Hodgkin lymphoma of ly mph nodes of neck (201.91, C81.91) Status: Active Name Dates Details Family history of pancreatic cancer (V16 .0, Z80.0) Status: Active Name Dates Details Family [...]
--- OUTSIDE RECORDS SUMMARY | 2020-02-18 22:03 | XMS REPORT | Summary of Care ---
Author CHEYENNE Ness [facility] Unknown Address Unknown Phone Unavailable Care Team Providers Care Application Penetration Tester Name Role Phone ANAIS Mora, ELIGIO Unavailable Unavailable LEDY P.A., YAMILE Unavailable Unavailable LEDY ORTIZ [place], YAMILE MCNEILL Unavailable Unavailab Ashwin PARKER [place], JOLENE Gomez Unavailable Unavailable BERNARD PARKER [place], DEE DEE CALDERON Unavailable Unavailable FERNANDA PARKER, [...] BY MOUTH ONCE DAILY Quantity: 90 ANAIS Belle.ELIGIO Amin * Start : 01-Sep-2018 Active Etodolac 400 [...] DAILY * Quantity: 90 Refills: 1 ANAIS Belle.AELIGIO Martin * Start : 19-Jan-2019 Active Eletriptan Hydrobromide 20 MG Oral Tablet TAKE 1 TABLET AT ONSET OF MIGRAINE. MAY REPEAT ONCE AFTER 2 HOURS. MAX 2 DOSES/2 4 HOURS. * Quantity: 30 Refills: 1 YAMILE VELAZQUEZ * Start : 19-Jan-2019 Active diazePAM 5 MG Oral Tablet TAKE 1 TABLET TWICE DAILY. * Quantity: 60 Refills: 1 ANAIS Belle.AELIGIO Martin * Start : 19-Dec-2019 Active Cyclobenzaprine HCl [...] Status: Resolved Procedures Procedure Dates Details Bladder [id number] Date: 19-Dec-2019 [place] Ren[place] 64157 Date: 19-Dec-2019 History of Cholecystotomy Completed History [...] Planned Encounters Appointment; YAMILE VILLAFANA P.A. On: 21-Feb-2020 14:00 Instructions Name Dates Details Instructions not documented Encounters Appointment; YAMILE VILLAFANA P.A. Encounter Diagnosis: Problem [...]
[2020-02-18 22:13] VITALS: BP 142/91
--- NOTE | 2020-02-18 22:14 | Emergency Department Note ---
History of Present Illnes History of Present Illness Chief Complaint: Extremity Trauma/Pain History of Present Illness This is a 44 year old female who presents with c/o pain and swelling to iv site. pt had lithotripsy done yesterday. . Historian: Patient Arrival Mode: Car Onset (how long ago): day(s) (1) Location: right forearm Quality: pain and swelling Radiation: non-radiation Severity: mild Onset quality: gradual Duration (how long): day(s) (1) Timing of current episode: constant Progression: worsening Chronicity: new Relieving factors: none Exacerbating factors: none Associated symptoms: denies other symptoms Past Medical/Family History Physician Review I have reviewed the patient's past medical and family history. Any updates have been documented here. Past Medical History Recent Fever: No Clinical Suspicion of Infectio: No New/Unexplained Change in Ment: No Past Medical History: Hypertension, Anxiety, Depression, GERD, Hyperlipedemia, Chronic Back Pain Other Medical History: DEGENERITIVE DISC DISEASE ARTHRITIS Past Surgical History: Cholecysctectomy, Other Surgery: LITHOTRISPY Social History Smoking Cessation: Never Smoker Alcohol Use: None Any Illegal Drug Use: No Other Last Tetanus: UNKNOWN Review of Systems Review of Systems Constitutional: no symptoms EENTM: no symptoms Cardiovascular: no symptoms Respiratory: no symptoms Gastrointestinal: no symptoms Genitourinary: no symptoms Musculoskeletal: no symptoms Neurological: no symptoms Psychological: no symptoms Endocrine: no symptoms Hematological/Lymphatic: no symptoms Review of other systems All other systems reviewed and negative. Physical Exam Related Data Allergies: Coded Allergies: No Known Allergies (Unverified , 07/13/18) Triage Vital Signs Vital Signs Date Time Temp Pulse Resp B/P (MAP) Pulse Ox O2 Delivery O2 Flow Rate FiO2 02/18/20 22:05 98.9 95 20 142/91 95 Vital signs reviewed: Yes Physical Exam CONSTITUTIONAL Constitutional: well-developed, well-nourished HENT HENT: normocephalic, atraumatic, oropharynx clear/moist, nose normal HENT L/R: left ext ear normal, right ext ear normal EYES Eyes: PERRL, conjunctivae normal NECK Neck: ROM normal PULMONARY Pulmonary: effort normal, breath sounds normal CARDIOVASCULAR Cardiovascular: regular rhythm, heart sounds normal, capillary refill normal, normal rate GASTROINTESTINAL Abdominal: soft, nontender, bowel sounds normal GENITOURINARY Genitourinary: exam deferred SKIN Skin: warm, dry, other (bruising at iv site with right forearm with mild swelling and redness, mild tenderness to palpation) MUSCULOSKELETAL Musculoskeletal: ROM normal NEUROLOGICAL Neurological: alert, oriented x 3, no gross motor or sensory deficits PSYCHOLOGICAL Psychological: mood/affect normal, judgement normal Critical Care Time Subsequent provider I assumed direction of critical care for this patient from another provider of my specialty. Assessment & Plan Assessment & Plan Final Impression: (1) Superficial thrombophlebitis Assessment & Plan pt has superficial thrombophlebitis to right forearm secondary to recent iv at same site. pt discharged home with instructions to take 81 mg aspirin daily and hot compresses to area Last Vital Signs Date Time Temp Pulse Resp B/P (MAP) Pulse Ox O2 Delivery O2 Flow Rate FiO2 02/18/20 22:05 98.9 95 20 142/91 95 Home Meds Reported Medications Atorvastatin Calcium (ATORVASTATIN CALCIUM) 10 Mg Tablet, 10 MG PO DAILY, #30 TAB 01/24/20 Olmesartan Medoxomil (Olmesartan Medoxomil) 5 Mg Tablet, 5 MG PO HS 01/24/20 Diazepam (VALIUM) 5 Mg Tablet, 5 MG PO PRN 12/29/19 Duloxetine Hcl (CYMBALTA) 30 Mg Capsule.dr, 30 MG PO BID, #30 CAP 12/29/19 Discontinued Reported Medications Tizanidine Hcl (TIZANIDINE HCL) 4 Mg Tablet, 4 MG PO HS, TAB 12/29/19 Tramadol Hcl* (ULTRAM 50MG*) 50 Mg Tab, 50 MG PO PRN, TAB 12/29/19 Gabapentin (GABAPENTIN) 300 Mg Capsule, 300 MG PO TID, #60 CAP 12/29/19 Etodolac (ETODOLAC) 400 Mg Tab.er.24h, 400 MG PO BID 12/29/19 LAXMI RENDON MD February 18, 2020 22:14
== END 2020-02-18 22:20 | disposition home or self-care (01) ==
LOC: ER 22:00
DX: I80.8 Phlebitis and thrombophlebitis of other sites (principal); Z98.890 Other specified postprocedural states; I10 Essential (primary) hypertension; E78.5 Hyperlipidemia, unspecified; K21.9 Gastro-esophageal reflux disease without esophagitis; F41.9 Anxiety disorder, unspecified
CPT/HCPCS: 99282

== ENCOUNTER → 2020-05-16 | Outpatient (CLI) | payer BC, OTHER ==
[~2020-05-16] MED LIST changes: +FUROSEMIDE INJ 10 MG/ML 4 ML VIAL ONE
--- NOTE | 2020-05-17 08:36 | Diagnostic Imaging Report ---
Renal Scan with Lasix Washout Clinical information: Unspecified hydronephrosis; renal calculi Technique: Following intravenous administration of 9.7 mCi of Tc-99m MAG3, dynamic images of the kidneys in the posterior projection were obtained through 40 minutes. Lasix 40 mg was administered intravenously at 12 minutes post injection of the tracer. Report: Left kidney: Perfusion of the left kidney is prompt. The kidney has a normal reniform shape. Extraction of tracer from the blood pool is normal. Clearance of tracer from the renal parenchyma is prompt. The pelvicalyceal system is not dilated although a prominent renal calyx is present in the upper pole. Increased pooling of tracer is seen in the upper pole calyx. Drainage of tracer from the pelvicalyceal system is adequate prior to administration of Lasix. No significant stasis of tracer is seen within the left ureter. Right kidney: Perfusion to the right kidney is prompt. The right kidney has a slightly distorted reniform shape with narrowing of the upper pole. The right kidney is slightly smaller than the left. Extraction of tracer by the renal parenchyma is normal. Clearance of tracer from the renal parenchyma is prompt. The pelvicalyceal system is not dilated although there are prominent renal calyces in the upper pole. Increased pooling of tracer is seen within the upper pole calyces. Drainage of tracer from the pelvicalyceal system is nearly adequate prior to administration of Lasix. Washout of tracer from the pelvicalyceal system following administration of Lasix is rapid with a T-1/2 of 8 minutes (normal less than 15 minutes). No significant stasis of tracer is seen within the right ureter. Differential renal function: The left kidney contributes 57% of total renal function and the right kidney contributes 43% (normal 43-57%). Impression: 1. The function of the left kidney is generally normal. No hydronephrosis is present. No physiologically significant obstruction of the renal collecting system is present. 2. Some scarring is present in the right kidney evidenced by the overall reduction in size of the kidney and the narrowing of the upper pole with prominent calyces. This accounts for the differential renal function of 43%. The function of the right kidney is generally normal. No hydronephrosis is present although mildly dilated calyces are present in the upper pole. No physiologically significant obstruction of the renal collecting system is present. Signed by: Dr. Siobhan Talavera M.D. on 05/17/2020 8:33 AM
== END ==
LOC: NM 12:58
PROVIDERS: ATTEND Urology
DX: N13.30 Unspecified hydronephrosis (principal)
CPT/HCPCS: 78708; 81025; A9562; J1940

== ENCOUNTER → 2020-06-12 | Outpatient (CLI) | payer BC, OTHER ==
[~2020-06-12] MED LIST changes: -FUROSEMIDE INJ 10 MG/ML 4 ML VIAL ONE
--- NOTE | 2020-06-12 18:01 | Diagnostic Imaging Report ---
Parathyroid Scan with SPECT Reason for exam: Hyperparathyroidism Radiopharmaceutical: Tc-99m sestamibi 27.5 mCi After intravenous administration of the radiopharmaceutical, immediate and 2-hour planar images of the neck and upper chest were obtained. Tomographic images of the neck and upper chest were also obtained following the initial planar images. Distribution of tracer activity appears physiologic throughout the neck and upper chest on the planar and tomographic images. No focal areas of increased tracer accumulation are identified. On the delayed planar images, washout of tracer from the thyroid is adequate with no focal areas of persistent tracer activity. Impression: No enlarged hypermetabolic parathyroid glands are identified. Signed by: Dr. Siobhan Talavera M.D. on 06/12/2020 5:57 PM
== END ==
LOC: NM 09:11
PROVIDERS: ATTEND Urology
DX: E21.3 Hyperparathyroidism, unspecified (principal)
CPT/HCPCS: 78071; 81025; A9500

== ENCOUNTER → 2020-07-30 | Outpatient (CLI) | payer BC ==
--- NOTE | 2020-07-30 11:40 | Diagnostic Imaging Report ---
Exam: KUB - 2 views Indication: Renal calculi Comparison: KUB of 02/14/2020 Findings: Interval removal of bilateral internal nephroureteral stents. No radiographically apparent urinary calculi. Nonobstructive bowel gas pattern. No free air. Status post cholecystectomy. No acute osseous injury. Impression: No radiographically apparent urinary calculi. Signed by: Ayanna Thayer MD on 07/30/2020 11:37 AM
== END ==
LOC: RAD 10:04
PROVIDERS: ATTEND Urology
DX: N20.0 Calculus of kidney (principal)
CPT/HCPCS: 74018

== ENCOUNTER → 2021-01-16 | Outpatient (CLI) | payer BC | LOC: CT 07:35 | PROVIDERS: ATTEND Urology | DX: N20.0 Calculus of kidney (principal) | CPT/HCPCS: 74176 ==

== ENCOUNTER → 2021-05-21 | Outpatient (CLI) | payer BC | LOC: US 07:20 | PROVIDERS: ATTEND Urology | DX: R31.21 Asymptomatic microscopic hematuria (principal) | CPT/HCPCS: 74018; 76770 ==

== ENCOUNTER 2021-09-13 13:36 | Emergency (ER) | payer BC ==
[~2021-09-13] VITALS: Ht 167.6 cm; Wt 109.8 kg
[2021-09-13 14:13] LABS: CLARITY,URINE CLEAR (CLEAR); COLOR,URINE YELLOW (YELLOW); KETONES,URINE NEGATIVE (NEGATIVE); LEUKOCYTE ESTERASE ,URINE NEGATIVE (NEGATIVE); NITRITE,URINE NEGATIVE (NEGATIVE); PROTEIN,URINE DIPSTICK NEGATIVE (NEGATIVE); URINE UROBILINOGEN 0.2 mg/dL (0.2 - 1)
[2021-09-13 14:39] LABS: EPITHELIAL CELLS,URINE RARE /LPF; RBC,URINE 0-5 /HPF (0-5); WBC,URINE (MAN) 0-5 /HPF (0-5)
[2021-09-13 15:30] LABS: BASOPHILS % 0.5 % (0.0-1.0); EOSINOPHILS # (AUTO) 0.3 (0.0-0.4); EOSINOPHILS % 5.3 % (0.0-6.0); HEMATOCRIT 40.4 % (34.2-44.1); HEMOGLOBIN 12.3 g/dL (12.0-16.0); LYMPHOCYTES # (AUTO) 2.2 (1.0-3.2); LYMPHOCYTES % 34.7 % (18.0-39.1); MEAN CORPUSCULAR HEMOGLOBIN 28.5 pg (28-32); MEAN CORPUSCULAR HGB CONC 30.4 g/dL (31-35); MEAN CORPUSCULAR VOLUME 93.5 fL (81-99); MONOCYTES # (AUTO) 0.4 (0.2-0.8); MONOCYTES % 6.3 % (4.4-11.3); NEUTROPHILS # (AUTO) 3.4 (2.1-6.9); NEUTROPHILS % 52.9 % (38.7-80.0); PLATELET COUNT 421 x10e3/uL (140-360); RED BLOOD COUNT 4.32 x10e6/uL (3.6-5.1); RED CELL DISTRIBUTION WIDTH 13.4 % (11.7-14.4)
[2021-09-13 15:48] LABS: ALANINE AMINOTRANSFERASE 17 IU/L (0-55); ALBUMIN 3.5 g/dL (3.5-5.0); ALBUMIN/GLOBULIN RATIO 0.9 (0.8-2.0); ALKALINE PHOSPHATASE 101 IU/L (40-150); ANION GAP 13.5 mmol/L (8-16); BLOOD UREA NITROGEN 9 mg/dL (7-26); BUN/CREATININE RATIO 11 (6-25); CALCIUM 8.9 mg/dL (8.4-10.2); CARBON DIOXIDE 25 mmol/L (22-29); CHLORIDE 106 mmol/L (98-107); CREATINE KINASE 86 IU/L (29-168); CREATININE, SERUM 0.79 mg/dL (0.57-1.11); EST GLOMERULAR FILTRATION RATE 79 ML/MIN (60-); GLUCOSE 99 mg/dL (74-118); POTASSIUM 4.5 mmol/L (3.5-5.1); SODIUM 140 mmol/L (136-145)
== END 2021-09-13 16:08 | disposition home or self-care (01) ==
LOC: ER 14:35
DX: R07.89 Other chest pain (principal); R51.9 Headache, unspecified; I10 Essential (primary) hypertension; K21.9 Gastro-esophageal reflux disease without esophagitis; F41.9 Anxiety disorder, unspecified; M54.9 Dorsalgia, unspecified; G89.29 Other chronic pain
CPT/HCPCS: 36415; 70450; 80053; 81001; 81025; 82550; 82553; 84484; 85025; 93005; 99283